=== PATIENT | female | born 1940 | race Caucasian/White ===

== ENCOUNTER → 2019-07-04 | Outpatient (CLI) | payer MEDICARE, SELFPAY ==
--- NOTE | 2019-07-04 09:50 | BD_ITS ---
STUDY: DUAL ENERGY X-RAY ABSORPTIOMETRY / DXA REASON FOR EXAM: Female, 78 years old. The patient is postmenopausal. Loss of height. Prior right hip replacement. TECHNIQUE: Bone Mineral Density (BMD) measurements of lumbar spine and left hip were obtained. COMPARISON: None. FINDINGS: Lumbar Spine (L1-L4): g/cm2 (1.252) / T-score (0.7) / Z-score (2.6) Findings are suggestive of normal bone density with a low fracture risk. Increased thoracic kyphosis. Left Femur Total: g/cm2 (0.914) / T-score (-0.7) / Z-score (1.2) Left Femoral Neck: g/cm2 (0.864) / T-score (-1.3) / Z-score (0.9) BD/Dexa Bone Density Study IMPRESSION: The patient is considered osteopenic as outlined below according to World Matthew Organization (WHO) criteria with a low fracture risk. Reference Information: The T-score is the number of standard deviations above or below the standard which is normal for young adults at their peak bone mineral density. The World Health Organization (WHO) interprets the T-scores as follows: Above -1 Normal bone density Between -1 and -2.5 Osteopenia Equal to / or below -2.5 Osteoporosis As a practical clinical guideline, osteopenia may be graded as follows: Mild -1 through -1.5 Moderate -1.6 through -2.0 Severe -2.1 through -2.4 The Z-score is the number of standard deviations above or below age-matched controls. A Z-score of less than -1.5 would be considered abnormal. References: 1. NIH Osteoporosis and Related Bone Diseases http://www.osteo.org 2. International Society for Clinical Densitometry http://www.iscd.org 3. National Osteoporosis Foundation http://www.nof.org Electronically Signed: Josh Roque, at 8:52 EDT , Service support ,
== END | disposition home or self-care (01) ==
LOC: OPBD 09:44
PROVIDERS: Family Provider Family Medicine; PCP Family Medicine; Referring Provider Family Medicine; Visit Provider Family Medicine
DX: Z78.0 Asymptomatic menopausal state (principal)
CPT/HCPCS: 77080

== ENCOUNTER 2020-12-27 13:06 | Outpatient (RCR) | payer MEDICARE, SELFPAY | END 2020-12-27 23:59 | LOC: IMMUN 13:06 | PROVIDERS: PCP Family Medicine; Referring Provider Family Medicine; Visit Provider Family Medicine | DX: Z23 Encounter for immunization (principal) | CPT/HCPCS: 0011A; 0012A ==

== ENCOUNTER 2022-01-12 12:40 | Outpatient (CLI) | payer MEDICARE, SELFPAY ==
--- NOTE | 2022-01-12 12:46 | US_ITS ---
HISTORY: HISTORY OF CHRONIC UTI'S EXAMINATION: US Kidney(s) complete (eg, kidneys and bladder) TECHNIQUE: Rosenthal scale and color doppler images were obtained of the kidneys and urinary bladder. COMPARISON: None FINDINGS: RIGHT KIDNEY: 10.9 x 5 x 4.6 cm cortical thickness of 1.3 cm. There is no hydronephrosis. Anechoic, exophytic cyst arising from lower pole measures 4.9 x 4.3 x 4.8 cm. No shadowing calculus or perinephric collection demonstrated. LEFT KIDNEY: 10.4 x 4.5 x 5.5 cm with cortical thickness of 1.4 cm. There is no hydronephrosis. 1.4 x 1.1 x 1.1 cm anechoic cyst within upper pole cortex. 0.9 x 0.6 x 0.9 cm anechoic cyst within interpolar cortex. No shadowing calculus or perinephric collection is demonstrated. URINARY BLADDER: Slightly distended urinary bladder measures 330 cc volume. No postvoid imaging performed. No intraluminal filling defects or significant wall thickening demonstrated. Bilateral ureteral jets visualized. US/Kidney and Bladder IMPRESSION: 1. Slightly distended urinary bladder. 2. Simple appearing bilateral renal cysts requiring no additional follow-up, largest arising from right lower pole measuring almost 5 cm diameter. at 0103 Reported and signed by: Scott Moreira MD Electronically Signed: Scott Moreira MD at 1:02 EST ,
== END 2022-01-12 23:59 | disposition home or self-care (01) ==
LOC: US 12:42
PROVIDERS: PCP Family Medicine; Referring Provider Urology; Visit Provider Urology
DX: N39.0 Urinary tract infection, site not specified (principal)
CPT/HCPCS: 76770

== ENCOUNTER 2022-02-09 11:40 | Day surgery (SDC) | payer MEDICARE, OTHER, SELFPAY ==
--- NOTE | 2022-02-03 09:22 | EKG12_ITS ---
Test Reason : PREOP Blood Pressure : / mmHG Vent. Rate : 068 BPM Atrial Rate : 068 BPM P-R Int : 182 ms QRS Dur : 088 ms QT Int : 398 ms P-R-T Axes : 056 038 038 degrees QTc Int : 423 ms Normal sinus rhythm Normal ECG Confirmed by JOSE RAMON SALAMANCA, JACKIE ([id number]), editor managing director ALVA BAGLEY ([id number]) on 02/04/2022 8:53:10 AM Referred By: Sonal Noel Confirmed By:JACKIE ALBRIGHT MD
[2022-02-03 09:52] LABS: Hematocrit 36.7 % (37-47); Mean Corp Hgb Conc 32.7 g/dL (32-36); Mean Corpuscular Hgb 31.2 pg (27.0-32.0); Mean Corpuscular Volume 95.3 fL (81-99); Mean Platelet Vol. 9.1 fl (6.2-12.0); Platelet Count 211 K/mm3 (150-450); RBC Distribution Width CV 12.4 % (11.6-14.6); RBC Distribution Width SD 43.2 fl (35.1-43.9); Red Blood Count 3.85 M/mm3 (4.2-5.4); White Blood Count 6.6 K/mm3 (4.4-11.0)
[2022-02-03 09:59] LABS: International Normalized Ratio 1.1; Prothrombin Time (Protime)PT. 13.9 SECONDS (11.7-14.9)
[2022-02-03 10:00] LABS: Partial Thromboplast Time 30.9 Seconds (24.1-36.2)
[2022-02-03 10:29] LABS: AST(SGOT) 17 U/L (15-37); Alanine Aminotransfer ALT/SGPT 18 U/L (13-56); Albumin, Serum 3.9 g/dL (3.2-5.0); Alkaline Phosphatase 73 U/L (45-117); Anion Gap 4 (5-15); BUN 23 mg/dL (7-18); BUN/Creat Ratio 24.5 RATIO (10-20); Calcium,Total 9.3 mg/dL (8.5-10.1); Chloride 103 mmol/L (98-107); Creatinine, Serum 0.94 mg/dL (0.55-1.02); EST Glomerular Filtration Rate 61 mL/min (>60); Est Glom Filt Rate - Afr Amer 74 mL/min (>60); Globulin 3.9 g/dL (2.2-4.2); Glucose 90 mg/dL (74-106); Magnesium 2.3 mg/dL (1.6-2.6); Phosphorus 3.5 mg/dL (2.5-4.9); Potassium 3.9 mmol/L (3.5-5.1); Protein, Total 7.8 g/dL (6.4-8.2); Sodium Level 136 mmol/L (136-145)
[2022-02-09] VITALS (7 sets, daily range): BP systolic 120–150; BP diastolic 56–67; PULSE 60–76; RESP 16–18; TEMP 35.8–37.2; O2SAT 96–100; BMI 31.4
[2022-02-09] MEDS: Lactated Ringers 1,000 ML 15 ML IV (12:15)
--- NOTE | 2022-02-09 13:20 | BLA_PTH ---
PATIENT: GUANAKO PUCKETT LOC: [facility] [place][id number] AGE/SX: 81/F ROOM: RE02/09/[address]: Dr. Sonal Noel MD : [id number] BED: DIS: 02/09/2022 SPEC #: [id number] RECD: 02/09/22 15:47 STATUS: ANA OJEDA #: [id number] AMRIT: 02/09/22 13:[address]: Sonal Noel DEPT: SURGICAL PATHOLOGY RECD BY: Ernestina Grey ENTERED: 02/10/22 08:02 SP TYPE: BLADDER BX OTHR DR: Dr. Joseph Graves MD Tissues: Urinary bladder, NOS Procedures: Surgery Specimen Level IV HEADER OPERATION: Cysto, bladder biopsy, fulguration PRE-OP DIAGNOSIS: Urinary tract infection, neoplasm of bladder, urgency of urination TISSUE SUBMITTED: Bladder biopsy MICROSCOPIC DIAGNOSIS Bladder, biopsy: Moderate chronic inflammation. Negative for malignancy. See comment. NAOMI:elissa 02/11/2022 COMMENT Detrusor muscle is present in the specimen. MICROSCOPIC DESCRIPTION Slides are reviewed. GROSS DESCRIPTION Received in fixative is one container labeled with the patient's name and designated bladder biopsy. The specimen consists of multiple irregular fragments of james soft tissue that in aggregate measure 0.2 x 0.1 x 01 cm. The specimen is totally submitted in one cassette. / NAOMI:elissa 02/10/2022 TC:3 CPT: 82866
[2022-02-09] MEDS: Cefazolin 2 GM in 0.9% Normal Saline 100 ML IV (13:34)
--- NOTE | 2022-02-09 13:37 | PCM.DC ---
Discharge Instructions Diet Discharge Diet: No restrictions Activity Discharge Activity: Return to Normal Activity Dressing / Incision Call your doctor if you observe: Fever of 101 or Higher, Inability to urinate and Inability to have a bowel movement Follow Up Care Please Follow Up With: Sonal Noel MD When: call office for an appt next week Test Results: Test results from this visit will be discussed in further detail at your follow-up appointment, if applicable. Discharge Plan Admission Attending Provider: Sonal Noel Primary Care Provider: Joseph Graves Discharge Orders/Prescriptions Prescriptions: New hydrocodone-acetaminophen [hydrocodone-acetaminophen] 1 TABLET tablet 1 tab PO Q8H PRN PRN (Reason: Pain) 7 Days Qty: 10 RF: 0 cephalexin [cephalexin] 500 MG capsule 500 mg PO Q12 3 Days Qty: 6 RF: 0 Continued amoxicillin 500 mg capsule 2,000 mg PO DAILY PRN PRN (Reason: prior to dentist visit) RF: 0 atenolol 100 mg tablet 100 mg PO DAILY RF: 0 bimatoprost 0.03 % drops 1 drp EACH EYE QHS RF: 0 tramadol 50 mg Tablet 50 mg PO Q8H PRN (Reason: arthritis pain) RF: 0 acetaminophen 500 mg Tablet 500 mg PO Q6H PRN (Reason: arthritis) RF: 0 ascorbic acid (vitamin C) [Vitamin C] 500 mg tablet 500 mg PO DAILY RF: 0 Premarin 0.625 mg/gram cream 1 applic vaginal DAILY RF: 0 ursodiol 300 mg capsule 60 mg PO BID RF: 0 dorzolamide-timolol 22.3-6.8 mg/mL drops 1 drp EACH EYE BID RF: 0 hydroxyzine HCl 25 mg Tablet 25 mg PO BID PRN (Reason: Itching) RF: 0 spironolactone 50 mg tablet 50 mg PO DAILY RF: 0 rosuvastatin 5 mg tablet 5 mg PO DAILY RF: 0 Align 4 mg Capsule 4 mg PO DAILY RF: 0 U-Tract 500 mg PO/SL TID RF: 0 Uricalm Cranberry With D-Martínez 1 tab PO/SL DAILY RF: 0 Referrals / Follow Up: Joseph Graves MD [Primary Care Provider] - Disposition Disposition (needs filled in before D/C Order can be placed): Home, Self Care
--- NOTE | 2022-02-09 14:01 | PCM.OPRPT ---
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 On the cystoscopy in the office, a questionable vascular lesion approximately 5 mm in size was identified close to the area of the trigone. Another lesion was also identified in the office similar appearance. Informed consent was obtained and the patient agreed to proceed with biopsy under anesthesia. The patient was taken to the operating room and placed on the operating room table. Anesthesia monitored the head, neck, airway, IV access and vital signs throughout the case. Once anesthesia was appropriate ministered the patient was placed into dorsal lithotomy position was prepped and draped in usual sterile fashion. The cystoscope was inserted through the urethra under direct visualization into the urinary bladder. The area of question appeared similar to a grouping of irregular blood vessels with changes in the overlying mucosa. This area was biopsied and sent for evaluation. The area was fulgurated for hemostatic control and tissue treatment. The area previously seen in the office posteriorly was not recognized today on cystoscopy. An area of mild erythema in the posterior bladder wall was biopsied and sent for evaluation. This area was also fulgurated for hemostatic control and tissue treatment. The patient's bladder was then emptied and the case was terminated. She was awakened and taken to the recovery room in good condition. There were no complications during this procedure. Complications none Admit VTE Documentation VTE Present on Admission: Yes VTE Mechan Device Prophylaxis: SCD's VTE Pharm Prophylaxis ordered?: No Reason prophylaxis not ordered:: Treatment Not Indicated
== END 2022-02-09 23:59 | disposition home or self-care (01) ==
LOC: SDC 11:41 → AC 11:41
PROVIDERS: Anesthesiology; PCP Family Medicine; Referring Provider Urology; Visit Provider Urology
PROC: 0TBB8ZX Excision of Bladder, Via Natural or Artificial Opening Endoscopic, Diagnostic (ICD-10-PCS; CPT 910; principal; 2022-02-09 13:10)
DX: N32.9 Bladder disorder, unspecified (principal); K74.60 Unspecified cirrhosis of liver; I10 Essential (primary) hypertension; M19.90 Unspecified osteoarthritis, unspecified site; Z79.899 Other long term (current) drug therapy; H40.9 Unspecified glaucoma; Z87.440 Personal history of urinary (tract) infections
CPT/HCPCS: 00910; 52224; 36415; 80053; 83735; 84100; 85027; 85610; 85730; 87426; 88305; 93005; C9803; J7120; J2405

== ENCOUNTER 2022-10-16 17:23 | Outpatient (CLI) | payer MEDICARE, OTHER, SELFPAY ==
--- NOTE | 2022-10-16 18:45 | MRI_ITS ---
INDICATION: ISCHEMIC OPTIC NEUROPATHY, RIGHT EYE EXAMINATION/TECHNIQUE: X-RAY - MR Orbits and Brain WO/W Contrast COMPARISON: None. FINDINGS: BRAIN AND EXTRA-AXIAL SPACES: No intracranial mass, mass effect, or midline shift. No enhancing lesion. No hemorrhage, hydrocephalus, or acute territorial infarct. Limited T2 signal hyperintensities in the white matter consistent with microvascular ischemia. Ventriculomegaly is commensurate with the degree of sulcal atrophy. Mild cerebral atrophy with widening of the extra-axial spaces and ventricular dilation. Basal cisterns are unremarkable. ORBITS: Globes are unremarkable. No intraorbital mass or enhancing lesion. Extraocular muscles are normal bilaterally. No retrobulbar or mass or inflammatory changes. No abnormal enhancement. SELLA: Pituitary gland is normal in height. Infundibulum in the midline. Normal cavernous sinuses and optic chiasm. AUDITORY SYSTEM: Unremarkable. BONES: Unremarkable. SINUSES: Unremarkable as visualized. Clear. MASTOID AIR CELLS: Unremarkable as visualized. Clear. ORBITS: Unremarkable as visualized. VASCULATURE: Normal flow voids in the major intracranial circulation. MRI/Brain W/WO Contrast IMPRESSION: No acute findings in the brain or orbits. Mild microvascular ischemic changes. Electronically Signed: Mago Santos MD at 21:30 EST Reading Location ID and State: [id number] / Tel , Service support ,
[2022-10-16 19:06] LABS: CREATININE FINGERSTICK < 0.9 mg/dL (0.55-1.02); EGFR FINGERSTICK > 60.0000 mL/min (>60)
== END 2022-10-16 23:59 | disposition home or self-care (01) ==
LOC: MRI 17:27
PROVIDERS: PCP Family Medicine; Visit Provider Ophthalmology
DX: H47.011 Ischemic optic neuropathy, right eye (principal); G31.9 Degenerative disease of nervous system, unspecified
CPT/HCPCS: 70553; A9575

== ENCOUNTER 2022-10-18 09:12 | Emergency (ER) | payer MEDICARE, OTHER, SELFPAY ==
[2022-10-18 09:16] VITALS: BP 170/68; PULSE 68; RESP 16; TEMP 36.4; O2SAT 99; BMI 31.1
[2022-10-18 09:24] VITALS: BP 170/68; PULSE 68; RESP 16; TEMP 36.4; O2SAT 99
--- NOTE | 2022-10-18 09:55 | EX.ED.DYSGE1 ---
HPI History of Present Illness Chief Complaint: Wound Informant: patient Narrative Narrative: 81-year-old female presenting to the emergency department with the chief complaint of right elbow wound. Symptoms began several days ago she had some discomfort on the posterior aspect of her right forearm near the elbow. She states that slowly she began to have a bump in her family thought it started to look like a boil. Now she notes erythema and swelling diffusely over the posterior elbow. She has had no fever. She denies any lymphangitic streaking. She has been able to move the elbow without pain. [facility] Medical History Bladder disease Cirrhosis Frequent UTI Glaucoma Hepatitis History of edema History of stress test Hoarseness Hypertension Leg cramps Neoplasm of uncertain behavior of bladder Non-smoker Osteoarthritis Seasonal allergies Shortness of breath on exertion Wears glasses Wears hearing aid Home Medications Bifidobacterium infantis 4 mg capsule (Align) 4 mg PO DAILY probiotic 02/02/22 [History Last Taken Unknown] U-Tract 500 mg PO/SL TID urinary tract health 02/02/22 [History Last Taken Unknown] Uricalm Cranberry With D-Martínez 1 tab PO/SL DAILY urinary tract health 02/02/22 [History Last Taken Unknown] acetaminophen 500 mg tablet 500 mg PO Q6H PRN arthritis 02/02/22 [History Last Taken Unknown] amoxicillin 500 mg capsule 2,000 mg PO DAILY PRN PRN prior to dentist visit 02/02/22 [History Last Taken Unknown] ascorbic acid (vitamin C) 500 mg tablet (Vitamin C) 500 mg PO DAILY supplement 02/02/22 [History Last Taken Unknown] atenolol 100 mg tablet 100 mg PO DAILY 02/02/22 [History Last Taken 02/09/22] bimatoprost 0.03 % eye drops 1 drp EACH EYE QHS 02/02/22 [History Last Taken Unknown] conjugated estrogens 0.625 mg/gram vaginal cream (Premarin) 1 applic vaginal DAILY 02/02/22 [History Last Taken Unknown] dorzolamide 22.3 mg-timolol 6.8 mg/mL eye drops 1 drp EACH EYE BID 02/02/22 [History Last Taken Unknown] hydroxyzine HCl 25 mg tablet 25 mg PO BID PRN Itching 02/02/22 [History Last Taken Unknown] rosuvastatin 5 mg tablet 5 mg PO DAILY HLD 02/02/22 [History Last Taken Unknown] spironolactone 50 mg tablet 50 mg PO DAILY water pill 02/02/22 [History Last Taken Unknown] tramadol 50 mg tablet 50 mg PO Q8H PRN arthritis pain 02/02/22 [History Last Taken Unknown] ursodiol 300 mg capsule 60 mg PO BID liver 02/02/22 [History Last Taken Unknown] cephalexin 500 mg capsule 500 mg PO Q12 post-operative 3 days #6 CAPSULES 02/09/22 [Rx Last Taken Unknown] hydrocodone-acetaminophen 5-325mg 5mg-325mg 1 tab PO Q8H PRN PRN Pain 7 days #10 TABLETS 02/09/22 [Rx Last Taken Unknown] Allergy/AdvReac Type Severity Reaction Status Date / Time nitrofurantoin Allergy Other Verified 02/09/22 11:59 [From Macrobid] Surgical History History of carpal tunnel release History of colonoscopy History of hip replacement History of hysterectomy History of knee replacement Social History Smoking Status: Never smoker ROS ROS ED Constitutional Constitutional ED: Denies chills or weight loss Eyes Eyes: Denies change in vision or diplopia ENT ENT ED: Denies ear pain, rhinorrhea or sore throat Cardiovascular Cardiovascular: Denies chest pain, orthopnea, palpitations or racing heartbeat Respiratory/Chest Respiratory/Chest: Denies cough, dyspnea or orthopnea Gastrointestinal Gastrointestinal: Denies abdominal pain, diarrhea, nausea or vomiting Genitourinary Genitourinary ED: Denies dysuria, hematuria or urinary frequency Musculoskeletal Musculoskeletal: Denies arthralgias or myalgias Integumentary Reports abscess and rash Neurologic Neurologic: Denies headache(s) or weakness Psychiatric Psychiatric: Denies anxiety, depression, suicidal ideation or suicidal thoughts Endocrine Endocrinology: Denies polydipsia, polyphagia or polyuria Allergic/Immunologic Allergic/Immunologic ED: Denies mouth swelling, tongue swelling or urticaria EXAM Physical Exam Const Vital Signs: 10/18/22 09:16 10/18/22 09:24 Temperature 97.6 F L 97.6 F L Temperature Source Temporal Temporal Pulse Rate 68 68 Respiratory Rate 16 16 Blood Pressure 170/68 H 170/68 H Blood Pressure Mean 102 102 Pulse Ox 99 99 Oxygen Delivery Method Room Air Room Air Positive well nourished and well developed General Appearance ED: well developed HEENT Reports normocephalic, head/scalp atraumatic and moist mucous membranes Eyes PERRL and EOMs intact bilaterally Neck no lymphadenopathy, supple and no JVD Resp normal respiratory effort and clear to auscultation bilaterally Cardio regular rate, regular rhythm and no murmurs GI normal to inspection, nondistended, normoactive bowel sounds and non-tender Palpation: soft Back/Spine no CVA tenderness and normal ROM Extremity normal to inspection General Extremety ED: Negative for edema General Extremity: Negative for edema Neuro oriented x3 and CN's II-XII intact bilaterally Sensorium / Orientation: alert Motor Exam: strength 5/5 throughout Psych mental status grossly normal Mood & Affect: Negative for depressed or tearful Skin Skin Narrative: There is erythema and swelling over the posterior aspect of the right elbow. Patient is able to flex and extend without significant pain suggesting that this is simply in the soft tissues and not in the joint space. Also located on the dorsum of the right posterior proximal forearm is a small pustule with an excoriated top. There is some induration about this and very minimal hard pus that can be expressed. There is no fluctuance. MDM MDM MDM Narrative Medical decision making narrative: The patient will be started on Keflex and Bactrim. She was advised that this may get worse and she may need to be hospitalized but this time she is currently afebrile she has not been on antibiotics I think it is reasonable to trial her at home. Discharge Plan Triage Chief Complaint: Wound ED Provider: Moe Pompa Dx/Rx/DC Orders Prescriptions: No Action amoxicillin 500 mg capsule 2,000 mg PO DAILY PRN PRN (Reason: prior to dentist visit) Label Comments: take 4 capsules by mouth 1 hour prior to appointment atenolol 100 mg tablet 100 mg PO DAILY bimatoprost 0.03 % drops 1 drp EACH EYE QHS tramadol 50 mg Tablet 50 mg PO Q8H PRN (Reason: arthritis pain) acetaminophen 500 mg Tablet 500 mg PO Q6H PRN (Reason: arthritis) ascorbic acid (vitamin C) [Vitamin C] 500 mg tablet 500 mg PO DAILY Label Comments: 1 tablet by mouth as directed Premarin 0.625 mg/gram cream 1 applic vaginal DAILY ursodiol 300 mg capsule 60 mg PO BID dorzolamide-timolol 22.3-6.8 mg/mL drops 1 drp EACH EYE BID hydroxyzine HCl 25 mg Tablet 25 mg PO BID PRN (Reason: Itching) spironolactone 50 mg tablet 50 mg PO DAILY rosuvastatin 5 mg tablet 5 mg PO DAILY Label Comments: take 1 tablet by mouth nightly Align 4 mg Capsule 4 mg PO DAILY U-Tract 500 mg PO/SL TID Uricalm Cranberry With D-Martínez 1 tab PO/SL DAILY hydrocodone-acetaminophen [hydrocodone-acetaminophen] 1 TABLET tablet 1 tab PO Q8H PRN PRN (Reason: Pain) 7 Days Qty: 10 0RF cephalexin [cephalexin] 500 MG capsule 500 mg PO Q12 3 Days Qty: 6 0RF Primary Care Provider: Joseph Graves Referrals: Joseph Graves MD [Primary Care Provider] -
== END 2022-10-18 10:22 | disposition home or self-care (01) ==
PROVIDERS: Emergency Provider Emergency Medicine; PCP Family Medicine; Visit Provider Emergency Medicine
DX: S59.901A Unspecified injury of right elbow, initial encounter (principal); I10 Essential (primary) hypertension; X58.XXXA Exposure to other specified factors, initial encounter
CPT/HCPCS: 87070; 87077; 87186; 87205; 99282

== ENCOUNTER 2022-10-19 13:39 | Outpatient (CLI) | payer MEDICARE, OTHER, SELFPAY ==
--- NOTE | 2022-10-19 13:46 | CDU_ITS ---
Reason For Study: ischemic optic neuropathy rt eye. Rt. Velocities/BP Lt. Velocities/BP Prox CCA 73.6/0.0 cm/sec. Prox CCA 95.3/9.3 cm/sec. Mid CCA 65.1/11.2 cm/sec. Mid CCA 60.9/13.0 cm/sec. Dist CCA 62.3/13.1 cm/sec. Dist CCA 65.8/10.6 cm/sec. Prox ICA 103.0/14.6 cm/sec. Prox ICA 88.3/14.6 cm/sec. Mid ICA 118.5/18.1 cm/sec. Mid ICA 87.1/12.2 cm/sec. Dist ICA 77.6/12.5 cm/sec. Dist ICA 100.6/19.5 cm/sec. Rt. ICA/CCA = 118.5/65.1=1.8. Lt. ICA/CCA = 100.6/60.9=1.7. Prox ECA 103.0/0.0 cm/sec. Prox ECA 65.0/0.0 cm/sec. Rt. Vert. 53.0/11.3 cm/sec. Lt. Vert. 59.2/13.1 cm/sec. Right Extracranial There is homogeneous, smooth atherosclerotic plaque noted in the right common carotid artery. There is heterogeneous, irregular atherosclerotic plaque noted in the right internal carotid artery. There is intimal thickening but no significant atherosclerotic plaque noted in the right external carotid artery. Antegrade flow is noted in the right vertebral artery. Left Extracranial There is intimal thickening but no significant atherosclerotic plaque noted in the left common carotid artery. There is heterogeneous, irregular atherosclerotic plaque noted in the left internal carotid artery. The atherosclerotic plaque causes acoustic shadowing. There is heterogeneous, irregular atherosclerotic plaque noted in the left external carotid artery. Antegrade flow is noted in the left vertebral artery. Procedure Carotid Duplex [id number]. This is a Carotid Duplex examination using B-mode, color flow and specral Doppler. Exam performed in department. VL/Carotid Duplex Ultrasound Interpretation Summary Irregular calcific plaque with some shadowing at the proximal right internal ca rotid artery with less than 50% stenosis.. Some backflow at the plaque is identified but a clear distinction of a plaque ulceration cannot be made. Less than 50% stenosis right external carotid artery Irregular calcific plaque with shadowing at the proximal left internal carotid artery with less than 50% stenosis Less than 50% stenosis left external carotid artery Patent antegrade vertebral arteries bilaterally Ordering Physician: Isidro Gibson Referring Physician: Joseph Graves Performed By: Callie Kelly, RDNANCY, RVT
== END 2022-10-19 23:59 | disposition home or self-care (01) ==
LOC: CVS 13:40
PROVIDERS: PCP Family Medicine; Referring Provider Ophthalmology; Visit Provider Ophthalmology
DX: H47.011 Ischemic optic neuropathy, right eye (principal); I65.23 Occlusion and stenosis of bilateral carotid arteries; H53.121 Transient visual loss, right eye
CPT/HCPCS: 93880

== ENCOUNTER 2022-10-22 09:42 | Emergency (ER) | payer MEDICARE, OTHER, SELFPAY ==
[2022-10-22 09:43] VITALS: BP 195/72; PULSE 66; RESP 18; TEMP 35.5; O2SAT 96; BMI 31.1
--- NOTE | 2022-10-22 10:45 | EDS_ITS ---
HPI History of Present Illness Chief Complaint: Wound Narrative Narrative: 81-year-old female who denies significant past medical history presents for evaluation of cellulitis on her right forearm. She states she was seen in the emergency department on Wednesday after there was a small area of drainage and surrounding redness, diagnosed with cellulitis. She has been taking Bactrim and Keflex for the last 5 days. There is an area on her right forearm that has enlarged and the induration has gotten worse. They state that he had one of the relatives who is an RN look at it and came back to the emergency department because they thought the area needed incision and drainage. She denies any fevers or chills. No nausea or vomiting. No other symptoms. The area continues to drain a small amount of purulent material. She states that the redness that has surrounded it has improved significantly. [facility] Medical History Bladder disease Cirrhosis Frequent UTI Glaucoma Hepatitis History of edema History of stress test Hoarseness Hypertension Leg cramps Neoplasm of uncertain behavior of bladder Non-smoker Osteoarthritis Seasonal allergies Shortness of breath on exertion Wears glasses Wears hearing aid Home Medications Bifidobacterium infantis 4 mg capsule (Align) 4 mg PO DAILY probiotic 02/02/22 [History Last Taken Unknown] U-Tract 500 mg PO/SL TID urinary tract health 02/02/22 [History Last Taken Unknown] Uricalm Cranberry With D-Martínez 1 tab PO/SL DAILY urinary tract health 02/02/22 [History Last Taken Unknown] acetaminophen 500 mg tablet 500 mg PO Q6H PRN arthritis 02/02/22 [History Last Taken Unknown] amoxicillin 500 mg capsule 2,000 mg PO DAILY PRN PRN prior to dentist visit 02/02/22 [History Last Taken Unknown] ascorbic acid (vitamin C) 500 mg tablet (Vitamin C) 500 mg PO DAILY supplement 02/02/22 [History Last Taken Unknown] atenolol 100 mg tablet 100 mg PO DAILY 02/02/22 [History Last Taken 02/09/22] bimatoprost 0.03 % eye drops 1 drp EACH EYE QHS 02/02/22 [History Last Taken Unknown] conjugated estrogens 0.625 mg/gram vaginal cream (Premarin) 1 applic vaginal DAILY 02/02/22 [History Last Taken Unknown] dorzolamide 22.3 mg-timolol 6.8 mg/mL eye drops 1 drp EACH EYE BID 02/02/22 [History Last Taken Unknown] hydroxyzine HCl 25 mg tablet 25 mg PO BID PRN Itching 02/02/22 [History Last Taken Unknown] rosuvastatin 5 mg tablet 5 mg PO DAILY HLD 02/02/22 [History Last Taken Unknown] spironolactone 50 mg tablet 50 mg PO DAILY water pill 02/02/22 [History Last Taken Unknown] tramadol 50 mg tablet 50 mg PO Q8H PRN arthritis pain 02/02/22 [History Last Taken Unknown] ursodiol 300 mg capsule 60 mg PO BID liver 02/02/22 [History Last Taken Unknown] cephalexin 500 mg capsule 500 mg PO Q12 post-operative 3 days #6 CAPSULES 02/09/22 [Rx Last Taken Unknown] hydrocodone-acetaminophen 5-325mg 5mg-325mg 1 tab PO Q8H PRN PRN Pain 7 days #10 TABLETS 02/09/22 [Rx Last Taken Unknown] cephalexin 500 mg capsule 500 mg PO Q6 #40 CAPSULES 10/18/22 [Rx Last Taken Unknown] sulfamethoxazole 800 mg-trimethoprim 160 mg tablet 1 tab PO BID #20 TABLETS 10/18/22 [Rx Last Taken Unknown] Allergy/AdvReac Type Severity Reaction Status Date / Time nitrofurantoin Allergy Other Verified 10/22/22 09:46 [From Macrobid] Surgical History History of carpal tunnel release History of colonoscopy History of hip replacement History of hysterectomy History of knee replacement Social History Smoking Status: Never smoker ROS ROS ED ROS Narrative Constitutional: No fever, no chills. HEENT: No sore throat. No neck pain. No loss of vision. No rhinorrhea. Cardiovascular: No chest pain. No palpitations. No pedal edema. Respiratory: No cough, no shortness of breath. Abdominal: No abdominal pain. No nausea. No vomiting. Genitourinary: No dysuria. No hematuria. Musculoskeletal: No myalgias. No arthralgias. Neurologic: No headaches. No dizziness. No lightheadedness. Skin: No rash. No change in color that is worsening, erythema improving on righ t forearm. Firmness to skin around raised red bumps that is draining purulent material. Psychiatric: No depression. No anxiety. EXAM Physical Exam Narrative Exam Narrative: Afebrile. Vital signs noted. HEENT: Normocephalic. Atraumatic. PERRL, EOMI. Neck soft and supple. No point tenderness or step off. Cardiovascular: Regular rate and rhythm. No murmurs, rubs, or gallops appreciated. Respiratory: No tachypnea. Lungs clear to auscultation bilaterally. Gastrointestinal: Abdomen soft, nontender, with normoactive bowel sounds. No rebound or guarding. Neurological: Awake. Alert. Nonfocal, nonlateralizing. Skin: No rash. Normal color. No pallor. There is a marker drawn in a circular area around her right forearm with erythema resolving. There is a raised reddened area with small areas of purulent drainage, surrounding induration but no extreme fluctuance. Musculoskeletal: No pedal edema. Full range of motion extremities. Full range of motion of elbow and wrist on right arm. No pain with movement. Const Vital Signs: 10/22/22 09:43 Temperature 96 F L Temperature Source Temporal Pulse Rate 66 Respiratory Rate 18 Blood Pressure 195/72 H Blood Pressure Mean 113 Pulse Ox 96 Oxygen Delivery Method Room Air MDM MDM MDM Narrative Medical decision making narrative: While her cellulitis has improved I do feel this area may be an area of ulceration that does require incision and drainage to remove any loculated flui d. Procedure note. Patient consented for incision and drainage. She was informed of the risk of infection continuing and scarring and acknowledges an understanding. Lidocaine 1% was used as a local anesthetic. Stellate incision was made over the ulcer/abscess with a #11 blade. There was more serosanguineous drainage than purulent. This may have been more of a infected sebaceous cyst. She was told of the risk of reaccumulation. Area was deloculated and irrigated. She will complete the rest of her antibiotics. Now that the abscess/ulcer has been opened, I do not feel that more antibiotics are indicated as her cellulitis has improved significantly. I feel she be discharged safely home. Return instructions to the emergency department were reviewed. Disposition is discharged home in improved and stable condition. Discharge Plan Triage Chief Complaint: Wound ED Provider: Vineet Atkinson Dx/Rx/DC Orders Clinical Impression: Abscess of right forearm, Wound check, abscess Instructions: ED Abscess Incision And Drainage Prescriptions: No Action amoxicillin 500 mg capsule 2,000 mg PO DAILY PRN PRN (Reason: prior to dentist visit) Label Comments: take 4 capsules by mouth 1 hour prior to appointment atenolol 100 mg tablet 100 mg PO DAILY bimatoprost 0.03 % drops 1 drp EACH EYE QHS tramadol 50 mg Tablet 50 mg PO Q8H PRN (Reason: arthritis pain) acetaminophen 500 mg Tablet 500 mg PO Q6H PRN (Reason: arthritis) ascorbic acid (vitamin C) [Vitamin C] 500 mg tablet 500 mg PO DAILY Label Comments: 1 tablet by mouth as directed Premarin 0.625 mg/gram cream 1 applic vaginal DAILY ursodiol 300 mg capsule 60 mg PO BID dorzolamide-timolol 22.3-6.8 mg/mL drops 1 drp EACH EYE BID hydroxyzine HCl 25 mg Tablet 25 mg PO BID PRN (Reason: Itching) spironolactone 50 mg tablet 50 mg PO DAILY rosuvastatin 5 mg tablet 5 mg PO DAILY Label Comments: take 1 tablet by mouth nightly Align 4 mg Capsule 4 mg PO DAILY U-Tract 500 mg PO/SL TID Uricalm Cranberry With D-Martínez 1 tab PO/SL DAILY hydrocodone-acetaminophen [hydrocodone-acetaminophen] 1 TABLET tablet 1 tab PO Q8H PRN PRN (Reason: Pain) 7 Days Qty: 10 0RF cephalexin [cephalexin] 500 MG capsule 500 mg PO Q12 3 Days Qty: 6 0RF sulfamethoxazole-trimethoprim [sulfamethoxazole-trimethoprim] 800-160 mg tablet 1 tab PO BID Qty: 20 0RF cephalexin [cephalexin] 500 mg capsule 500 mg PO Q6 Qty: 40 0RF Primary Care Provider: Joseph Graves Referrals: Joseph Graves MD [Primary Care Provider] - 3-5 Days if not improving Activity Restrictions/Additional Instructions: Finish the rest of your antibiotics. Your cellulitis has improved significantly. Warm compresses to your abscess. Now that it is open, you will see a significant improvement. Disposition Disposition: Home, Self Care
[2022-10-22 11:39] VITALS: BP 134/78; PULSE 88; RESP 18; TEMP 36.4; O2SAT 99
[2022-10-22] MEDS: Lidocaine 1% (20 ml mdv) 20 ML Vial INFILT (11:40)
== END 2022-10-22 11:42 | disposition home or self-care (01) ==
PROVIDERS: Emergency Provider Emergency Medicine; PCP Family Medicine; Visit Provider Emergency Medicine
DX: L02.413 Cutaneous abscess of right upper limb (principal); I10 Essential (primary) hypertension
CPT/HCPCS: 10060; 99282

== ENCOUNTER 2022-10-27 08:42 | Emergency (ER) | payer MEDICARE, OTHER, SELFPAY ==
[2022-10-27 08:42] VITALS: BP 164/71; PULSE 63; RESP 18; TEMP 36.3; O2SAT 96; BMI 31.1
[2022-10-27 08:54] VITALS: BP 164/71; PULSE 63; RESP 18; TEMP 36.3; O2SAT 96
--- NOTE | 2022-10-27 09:44 | EX.ED.DYSGE1 ---
HPI History of Present Illness Chief Complaint: Abscess Informant: patient Onset/Context/Timing Onset: Weeks Narrative Narrative: Patient presents secondary to continued abscess on her right forearm. She was seen initially in the ER and diagnosed with cellulitis, started on Bactrim and Keflex. She returned a couple days later for an I&D. Patient states that the area was significantly improved but over the past couple days has noted it starting to enlarge again. She only has 1 day of antibiotics left. [facility]SH [facility] Medical History Bladder disease Cirrhosis Frequent UTI Glaucoma Hepatitis History of edema History of stress test Hoarseness Hypertension Leg cramps Neoplasm of uncertain behavior of bladder Non-smoker Osteoarthritis Seasonal allergies Shortness of breath on exertion Wears glasses Wears hearing aid Home Medications Bifidobacterium infantis 4 mg capsule (Align) 4 mg PO DAILY probiotic 02/02/22 [History Last Taken Unknown] U-Tract 500 mg PO/SL TID urinary tract health 02/02/22 [History Last Taken Unknown] Uricalm Cranberry With D-Martínez 1 tab PO/SL DAILY urinary tract health 02/02/22 [History Last Taken Unknown] acetaminophen 500 mg tablet 500 mg PO Q6H PRN arthritis 02/02/22 [History Last Taken Unknown] amoxicillin 500 mg capsule 2,000 mg PO DAILY PRN PRN prior to dentist visit 02/02/22 [History Last Taken Unknown] ascorbic acid (vitamin C) 500 mg tablet (Vitamin C) 500 mg PO DAILY supplement 02/02/22 [History Last Taken Unknown] atenolol 100 mg tablet 100 mg PO DAILY 02/02/22 [History Last Taken 02/09/22] bimatoprost 0.03 % eye drops 1 drp EACH EYE QHS 02/02/22 [History Last Taken Unknown] conjugated estrogens 0.625 mg/gram vaginal cream (Premarin) 1 applic vaginal DAILY 02/02/22 [History Last Taken Unknown] dorzolamide 22.3 mg-timolol 6.8 mg/mL eye drops 1 drp EACH EYE BID 02/02/22 [History Last Taken Unknown] hydroxyzine HCl 25 mg tablet 25 mg PO BID PRN Itching 02/02/22 [History Last Taken Unknown] rosuvastatin 5 mg tablet 5 mg PO DAILY HLD 02/02/22 [History Last Taken Unknown] spironolactone 50 mg tablet 50 mg PO DAILY water pill 02/02/22 [History Last Taken Unknown] tramadol 50 mg tablet 50 mg PO Q8H PRN arthritis pain 02/02/22 [History Last Taken Unknown] ursodiol 300 mg capsule 60 mg PO BID liver 02/02/22 [History Last Taken Unknown] cephalexin 500 mg capsule 500 mg PO Q12 post-operative 3 days #6 CAPSULES 02/09/22 [Rx Last Taken Unknown] hydrocodone-acetaminophen 5-325mg 5mg-325mg 1 tab PO Q8H PRN PRN Pain 7 days #10 TABLETS 02/09/22 [Rx Last Taken Unknown] cephalexin 500 mg capsule 500 mg PO Q6 #40 CAPSULES 10/18/22 [Rx Last Taken Unknown] sulfamethoxazole 800 mg-trimethoprim 160 mg tablet 1 tab PO BID #20 TABLETS 10/18/22 [Rx Last Taken Unknown] doxycycline monohydrate 100 mg capsule 100 mg PO BID #20 caps 10/27/22 [Rx Last Taken Unknown] Allergy/AdvReac Type Severity Reaction Status Date / Time nitrofurantoin Allergy Other Verified 10/27/22 08:45 [From Macrobid] Surgical History History of carpal tunnel release History of colonoscopy History of hip replacement History of hysterectomy History of knee replacement Social History Smoking Status: Never smoker ROS ROS ED Constitutional Constitutional ED: Denies chills or fever(s) Eyes Eyes: Denies change in vision or discharge from eye(s) ENT ENT ED: Denies discharge from eye(s), rhinorrhea or sore throat Cardiovascular Cardiovascular: Denies chest pain or palpitations Respiratory/Chest Respiratory/Chest: Denies cough or dyspnea Gastrointestinal Gastrointestinal: Denies abdominal pain, diarrhea, nausea or vomiting Genitourinary Genitourinary ED: Denies dysuria Musculoskeletal Musculoskeletal: Reports extremity pain; Denies back pain Integumentary Reports abscess; Denies Abrasions or rash Neurologic Neurologic: Denies headache(s) or weakness Psychiatric Psychiatric: Denies anxiety or depression Allergic/Immunologic Allergic/Immunologic ED: Denies lip swelling or urticaria EXAM Physical Exam Const Vital Signs: 10/27/22 08:42 12/13/22 08:54 Temperature 97.3 F L 97.3 F L Temperature Source Temporal Temporal Pulse Rate 63 63 Respiratory Rate 18 18 Blood Pressure 164/71 H 164/71 H Blood Pressure Mean 102 102 Pulse Ox 96 96 Oxygen Delivery Method Room Air Room Air Positive well nourished and well developed General Appearance ED: well developed HEENT Reports normocephalic and head/scalp atraumatic Eyes PERRL and EOMs intact bilaterally Neck supple Chest Wall inspection of chest normal and palpation of chest normal Resp normal respiratory effort and clear to auscultation bilaterally Cardio regular rate and regular rhythm GI normal to inspection, nondistended, normoactive bowel sounds Palpation: soft Extremity Extremity Narrative: 3 x 3 cm abscess to the volar right forearm. No surrounding cellulitis. Neuro oriented x3 and no sensory deficits noted Sensorium / Orientation: alert Motor Exam: strength 5/5 throughout Psych mental status grossly normal Skin Skin Narrative: Abscess as noted above. MDM MDM MDM Narrative Medical decision making narrative: Patient consented for I&D. 1 cc 1% lidocaine infused locally over the abscess. A 1.5 cm incision was made with a #11 blade. Wound is explored with curved hemostats and loculations broken up. No significant drainage of pus. Quarter inch iodoform packing was placed in the wound. This is to be removed in 3 days. Dressing applied. I did review her recent wound culture which revealed staph aureus. I will switch her to doxycycline for continued antibiotic coverage. Discharge Plan Triage Chief Complaint: Abscess ED Provider: Usha Marino Dx/Rx/DC Orders Clinical Impression: Cutaneous abscess Instructions: ED Abscess Incision And Drainage Prescriptions: New doxycycline monohydrate 100 mg capsule 100 mg PO BID Qty: 20 0RF No Action amoxicillin 500 mg capsule 2,000 mg PO DAILY PRN PRN (Reason: prior to dentist visit) Label Comments: take 4 capsules by mouth 1 hour prior to appointment atenolol 100 mg tablet 100 mg PO DAILY bimatoprost 0.03 % drops 1 drp EACH EYE QHS tramadol 50 mg Tablet 50 mg PO Q8H PRN (Reason: arthritis pain) acetaminophen 500 mg Tablet 500 mg PO Q6H PRN (Reason: arthritis) ascorbic acid (vitamin C) [Vitamin C] 500 mg tablet 500 mg PO DAILY Label Comments: 1 tablet by mouth as directed Premarin 0.625 mg/gram cream 1 applic vaginal DAILY ursodiol 300 mg capsule 60 mg PO BID dorzolamide-timolol 22.3-6.8 mg/mL drops 1 drp EACH EYE BID hydroxyzine HCl 25 mg Tablet 25 mg PO BID PRN (Reason: Itching) spironolactone 50 mg tablet 50 mg PO DAILY rosuvastatin 5 mg tablet 5 mg PO DAILY Label Comments: take 1 tablet by mouth nightly Align 4 mg Capsule 4 mg PO DAILY U-Tract 500 mg PO/SL TID Uricalm Cranberry With D-Martínez 1 tab PO/SL DAILY hydrocodone-acetaminophen [hydrocodone-acetaminophen] 1 TABLET tablet 1 tab PO Q8H PRN PRN (Reason: Pain) 7 Days Qty: 10 0RF cephalexin [cephalexin] 500 MG capsule 500 mg PO Q12 3 Days Qty: 6 0RF sulfamethoxazole-trimethoprim [sulfamethoxazole-trimethoprim] 800-160 mg tablet 1 tab PO BID Qty: 20 0RF cephalexin [cephalexin] 500 mg capsule 500 mg PO Q6 Qty: 40 0RF Primary Care Provider: Joseph Graves Referrals: Joseph Graves MD [Primary Care Provider] - 1 Week Disposition Disposition: Home, Self Care
[2022-10-27] MEDS: Lidocaine 1% (20 ml mdv) 20 ML Vial INFILT (09:45)
== END 2022-10-27 10:32 | disposition home or self-care (01) ==
PROVIDERS: Emergency Provider Emergency Medicine; PCP Family Medicine; Visit Provider Emergency Medicine
DX: L02.413 Cutaneous abscess of right upper limb (principal); I10 Essential (primary) hypertension; B95.8 Unspecified staphylococcus as the cause of diseases classified elsewhere
CPT/HCPCS: 10060; 99282

== ENCOUNTER → 2023-03-30 | Outpatient (CLI) | payer MEDICARE, OTHER, SELFPAY | END | disposition home or self-care (01) | LOC: LAB 09:58 | PROVIDERS: PCP Family Medicine; Referring Provider Ophthalmology; Visit Provider Ophthalmology | DX: Z00.00 Encounter for general adult medical examination without abnormal findings (principal) | CPT/HCPCS: 36415 ==

== ENCOUNTER → 2023-12-21 | Outpatient (CLI) | payer MEDICARE, OTHER, SELFPAY ==
--- OUTSIDE RECORDS SUMMARY | 2023-12-21 09:08 | XMS RPT_ITS | CCD ---
Author Name Unknown Address [address] [facility] [address] [place] [address] Organization [facility] Care Team Providers Care Welfare Administrator Name Role Phone SATYA LYLES Unavailable Unavailable RAFAL, SATYA Unavailable Unavailable RAFAL, SATYA Unavailable Unavailable Rafal III, Satya Olivier Primary Care Provider Ezequiel Mark Unavailable Angela Patel MD Primary Care Provider Angela Patel MD Primary Care Provider Rafal III, Satya Olivier Primary Care Provider Ezequiel Mark MD Unavailable WENDY ROSA Attending Unavailable RAFAL III, SATYA BURLINGTON Primary Care Unavail able BONNIE GONGORA Attending Unavailable RAFAL III, [facility] Primary Care Unavail able WENDY ROSA Attending Unavailable RAFAL III, SATYA MAKENZIE Primary Care Unavail able BONNIE GONGORA Referring Unavailable RAFAL III, SATYA MAKENZIE Primary Care Unavail able ANGELA PATEL Attending Unavailable AMANDA, ANGELA Primary Care Unavailable AMANDA, ANGELA Attending Unavailable AMANDA, ANGELA Primary Care Unavailable AMANDA, ANGELA Attending Unavailable AMANDA, ANGELA Primary Care Unavailable AMANDA, ANGELA Attending Unavailable AMANDA, ANGELA Primary Care Unavailable AMANDA, ANGELA Attending Unavailable AMANDA, ANGELA Referring Unavailable AMANDA, ANGELA Primary Care Unavailable MAXIMO RUANO Attending Unavailable AMANDA, ANGELA Primary Care Unavailable Allergies Allergy Classification Reported Allergen(s) Allergy Type Date of Onset Reaction(s) Facility (15 sources) Nitrofurantoin; Translations: [NITROFURANTOIN] Drug Allergy 10-14-2016 Other: See Comments [facility] Medications Current Medications Medication Drug Class(es) Dates Sig (Normalized) Sig (Original) acetaminophen 500 mg oral tablet (14 sources) take 1 tablet by mouth every six hours as needed acetaminophen (Tylenol) 500 MG tablet Take 500 mg by mouth every 6 hours as needed. 0 Active Completed/Discontinued Medications Medication Drug Class(es) Dates Sig (Normalized) Sig (Original) amoxicillin 500 mg oral capsule (6 sources) Penicillin-class Antibacterial Start: 04-21-2011 take 4 capsules by mouth every hour amoxicillin 500 mg ORAL capsule Indications: S/P total knee replacement using cement TAKE FOUR (4) CAPS BY MOUTH ONE (1) HOUR PRIOR TO DENTAL WORK 4 capsule 3 04/21/2011 Active Problems Active Problems Problem Classification Problem Date Documented Da te Episodic/Chronic Disorders of lipid metabolism (11 sources) Pure hypercholesterolemi a; Translations: [Pure hypercholesterolemi a, unspecified] Onset: 11-20-2019 08-30-2022 Chronic Essential hypertension (11 sources) Essential hypertension; Translations: [Essential (primary) hypertension] Onset: 11-20-2019 08-30-2022 Chronic Glaucoma (12 sources) Glaucoma; Translations: [Unspecified glaucoma] Onset: 11-29-2018 08-30-2022 Chronic Hepatitis (6 sources) Drug-induced hepatitis; 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, not elsewhere classified] Onset: 01-15-2012 01-15-2012 Chronic Osteoarthritis (11 sources) Arthritis; Translations: [Unspecified osteoarthritis, unspecified site] Onset: 11-29-2018 08-30-2022 Chronic Other connective tissue disease (8 sources) Pain of right lower leg; Translations: [Pain in right lower leg] Onset: 01-29-2023 01-29-2023 Episodic Other eye disorders (1 source) Disorder of lacrimal gland; Translations: [Dry eye syndrome of bilateral lacrimal glands] 09-13-2023 Episodic Other liver diseases (6 sources) Cirrhosis of liver; Translations: [Unspecified cirrhosis of liver] Onset: 12-11-2011 12-11-2011 Chronic Other liver diseases (14 sources) Portal hypertension; Translations: [Portal hypertension] Onset: 12-11-2011 12-11-2011 Chronic Other liver diseases (6 sources) Lesion of liver; Translations: [Liver disease, unspecified] Onset: 09-17-2014 09-17-2014 Chronic Other liver diseases (17 sources) Primary biliary cholangitis; 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] Onset: 08-16-2015 08-19-2018 Chronic Other liver diseases (3 sources) Primary biliary cirrhosis; 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)] Onset: 08-19-2018 Chronic Other liver diseases (2 sources) Portal hypertension; Translations: [Portal hypertension (HCC)] Onset: 01-29-2023 Chronic Other upper respiratory disease (2 sources) Congestion of nasal sinus; Translations: [Nasal congestion] Onset: 11-09-2023 11-09-2023 Episodic Other upper respiratory disease (2 sources) Nasal congestion; Translations: [Nasal congestion] Onset: 11-09-2023 Episodic Other upper respiratory infections (4 sources) Viral upper respiratory tract infection; Translations: [Acute upper respiratory infection, unspecified] Onset: 11-09-2023 11-09-2023 Episodic Retinal detachments; defects; vascular occlusion; and retinopathy (1 source) Occlusion of central retinal vein of left eye; Translations: [Central retinal vein occlusion, left eye, stable] 09-13-2023 Chronic Past or Other Problems Problem Classification Problem Date Documented Da te Episodic/Chronic Genitourinary symptoms and ill-defined conditions (2 sources) Dysuria; Translations: [DYSURIA] Onset: 05-27-2017 Episodic Neoplasms of unspecified nature or uncertain behavior (14 sources) Benign neoplasm of pancreas; Translations: [Neoplasm of unspecified behavior of digestive system] Onset: 10-14-2016 10-14-2016 Episodic Other connective tissue disease (2 sources) Pain in lower limb; Translations: [Leg Pain] Onset: 02-03-2023 Episodic Other connective tissue disease (2 sources) Pain in right lower leg; Translations: [Pain in right lower leg] Onset: 01-29-2023 Episodic Other connective tissue disease (2 sources) Other specified soft tissue disorders; Translations: [Other specified soft tissue disorders] Onset: 01-29-2023 Episodic Other non-traumatic joint disorders (6 sources) Pain in unspecified knee; Translations: [Pain in joint, lower leg] Onset: 04-17-2011 04-17-2011 Episodic Other non-traumatic joint disorders (6 sources) Hip pain; Translations: [Pain in unspecified hip] Onset: 04-17-2011 04-17-2011 Episodic Other screening for suspected conditions (not mental disorders or infectious disease) (9 sources) Liver function tests abnormal; Translations: [Other specified abnormal findings of blood chemistry] Onset: 12-11-2011 12-11-2011 Episodic Skin and subcutaneous tissue infections (8 sources) Cellulitis of right lower limb; Translations: [Cellulitis of right lower limb] Onset: 01-29-2023 01-29-2023 Episodic Urinary tract infections (8 sources) Recurrent urinary tract infection; Translations: [Urinary tract infection, site not specified] Onset: 12-31-2021 08-30-2022 Episodic Results Test Name Value Interpretation Reference Range Facil ity Vital Signs Date Time Vital Sign Value Performing Clinician Faci lity 11-09-2023 09:18-0500 Body mass index (BMI) [Ratio] 29.61 kg/m2 Maximojos Shenenthal SURFACE GRINDER - MARKETING SPECIALIST Work Phone: [employer] 11-09-2023 09:18-0500 Body temperature 97.39 [degF] Maximo Bridenthal SURFACE GRINDER - MARKETING SPECIALIST Work Phone: [employer] 11-09-2023 09:18-0500 Body weight 71.67 kg Maximo Bridenthal SURFACE GRINDER - MARKETING SPECIALIST Work Phone: [employer] 11-09-2023 09:18-0500 Diastolic blood pressure 64 mm[Hg] Maximo Acenthal SURFACE GRINDER - MARKETING SPECIALIST Work Phone: [employer] 11-09-2023 09:18-0500 Heart rate 96 /min Maximo Acenthal SURFACE GRINDER - MARKETING SPECIALIST Work Phone: [employer] 11-09-2023 09:18-0500 Respiratory rate 24 /min Maximo Acenthal SURFACE GRINDER - MARKETING SPECIALIST Work Phone: [employer] 11-09-2023 09:18-0500 SaO2% (BldA) [Mass fraction] 96 % Maximo Acenthal SURFACE GRINDER - MARKETING SPECIALIST Work Phone: [employer] 11-09-2023 09:18-0500 Systolic blood pressure 119 mm[Hg] Maximo Acenthal SURFACE GRINDER - MARKETING SPECIALIST Work Phone: [employer] 07-05-2023 10:48-0400 Diastolic blood pressure 72 mm[Hg] Angela Patel MD Work Phone: [employer] 07-05-2023 10:48-0400 Heart rate 60 /min Angela Patel MD Work Phone: [employer] 07-05-2023 10:48-0400 Systolic blood pressure 128 mm[Hg] Angela Patel MD Work Phone: [employer] 07-05-2023 10:11-0400 Body height 155.6 cm Angela Patel MD Work Phone: [employer] 07-05-2023 10:11-0400 Body mass index (BMI) [Ratio] 29.99 kg/m2 Angela Patel MD Work Phone: [employer] 07-05-2023 10:11-0400 Body weight 72.58 kg Angela Patel MD Work Phone: [employer] 07-05-2023 10:11-0400 SaO2% (BldA) [Mass fraction] 95 % Angela Patel MD Work Phone: [employer] 02-03-2023 14:07-0400 Body height 155.6 cm Angela Patel MD Work Phone: [employer] 02-03-2023 14:07-0400 Body mass index (BMI) [Ratio] 30.51 kg/m2 Angela Patel MD Work Phone: [employer] 02-03-2023 14:07-0400 Body weight 73.85 kg Angela Patel MD Work Phone: [employer] 02-03-2023 14:07-0400 Diastolic blood pressure 69 mm[Hg] Angela Patel MD Work Phone: [employer] 02-03-2023 14:07-0400 Heart rate 65 /min Angela Patel MD Work Phone: [employer] 02-03-2023 14:07-0400 Systolic blood pressure 167 mm[Hg] Angela Patel MD Work Phone: [facility] Encounters Encounter Date Encounter Type Care Provider Facility Start: 11-22-2023 End: 11-22-2023 ambulatory WENDY SEE Facility:[facility] Start: 11-09-2023 End: 11-09-2023 ambulatory MAXIMO RUANO [facility] Start: 11-09-2023 End: 11-09-2023 Office outpatient visit 15 minutes Maximo Ruano SURFACE GRINDER - MARKETING SPECIALIST Work Phone: [facility] Procedures Date Procedure Procedure Detail Performing Clinician Start: 09-13-2023 Clsr lacrimal punctu m plug each Wendy Rosa MD Work Phone: Start: 07-05-2023 Lipid 1996 panel - S trip or Plasma Angela Patel MD Work Phone: Start: 07-02-2023 Adult depression screening assessment Angela Patel MD Work Phone: Start: 02-03-2023 Follow-up visit Follow-up ANGELA PATEL Start: 07-01-2022 Lipid 1996 panel - S trip or Plasma Shyla Lucia RN Plan of Treatment Date Care Activity Detail Author Start: 07-05-2028 Lipid panel Lipid Panel [facility] Start: 07-01-2027 Lipid panel Lipid Panel [facility] Start: 05-24-2026 Diabetes Screening Diabetes Screenin g [facility] Start: 11-09-2024 COVID-19 Vaccine ( season) COVID-19 Vaccine ( season) [facility] Immunizations Immunization Date Immunization Notes Care Provider Fa cility 07-01-2022 Pneumococcal Conjuga te PCV20, Pf (Prevnar 20) Shyla Lucia RN [facility] 06-30-2021 pneumococcal polysaccharide vaccine, 23 valent Shyla Lucia RN [facility] 12-27-2020 Moderna SARS-CoV-2 Vaccination Shyla Lucia RN [facility] 09-10-2016 influenza, seasonal, injectable, preservative free Shyla Lucia RN [facility] 09-10-2016 influenza virus vacc ine, unspecified formulation Shyla Lucia RN [facility] 09-21-2013 influenza, seasonal, injectable, preservative free Shyla Lucia RN [facility] 08-25-2013 hepatitis B vaccine, adult dosage Amelia George [facility] 08-25-2013 hepatitis B vaccine, unspecified formulation Ameliazachary Andradeacre [facility] 04-15-2012 hepatitis B vaccine, adult dosage Amelia [facility] 12-23-2005 tetanus and diphther ia toxoids, adsorbed, preservative free, for adult use (2 Lf of tetanus toxoid and 2 Lf of diphtheria toxoid) Shyla Lucia RN [facility] Payers Date Payer Category Payer Medicare [id number] 2019 Unknown [id number] 2004 Medicare 2004 Medicare [id number] Social History Date Type Detail Facility Start: 12-18-2011 Tobacco smoking status NHIS Never sm oked tobacco [facility] Start: 12-18-2011 Tobacco use and exposure Smoke less tobacco non-user [facility] Start: 09-18-2021 End: 11-09-2023 Alcohol intake Current non-drinker of alcohol (finding) [facility] Start: 1940 Sex Assigned At Not on file C [facility] Start: 01-04-2023 History SDOH Financial 5 [facility] Start: 01-04-2023 History SDOH Food Worry 1 [facility] Start: 01-04-2023 History SDOH Transport Med 2 [facility] Start: 01-18-2023 End: 07-05-2023 Exposure to SARS-CoV-2 (event) Not sure [facility] Start: 01-04-2023 End: 07-02-2023 History of Social function [facility] Start: 01-04-2023 End: 07-02-2023 Alcohol Use Disorder Identification Test - Consumption [AUDIT-C] [facility] How often to you hav e a drink containing alcohol? Never [facility] How many standard dr inks containing alcohol do you have on a typical day? Patient does not drink [facility] (I/We) worried wheth er (my/our) food would run out before (I/we) got money to buy more. Never true [facility] [employer] In the past 12 month s, was there a time when you were not able to pay the mortgage or rent on time? No [facility] Clinical Notes 09-11-2022 to 11-22-2023 Assessment & Plan Note - Maxiom Ruano [facility] - 11/09/2023 10:53 AM ESTAssessment & Plan Note - Maximo Ruano, [facility] - 11/09/2023 10:53 AM ESTPatient Instructions Note Date & Type Note Facility 11-22-2023 Note HNO ID: [id number] Author: WENDY ROSA MD Service: ? Author Type: Physician Type: Progress Notes Filed: 11/22/2023 10:46 Note Text: ASSESSMENT/PLAN: 1. Dry eye syndrome of bilateral lacrimal glands - ICD9: 375.15, ICD10: H04.123 (primary diagnosis) Referred by Isidro Gibson She has significant fogging of the vision that gets worse during the day Her vision is at its best in AM or right after she rests Possibly improves with ATs She in on restasis BID and PFATs q2h RL punctum appears post cautery or possibly scarred RU punctum is patent, confirmed on irrigation Plug RUL helped with vision but she is having constant tearing Replace plug RUL with Tapered Shaft Flow Controller 0.7mm She was on FML, since stopped 2. Central retinal vein occlusion, left eye, stable - ICD9: 362.35, ICD10: H34.8122 LP vision 3. Primary open angle glaucoma of both eyes, unspecified glaucoma stage - ICD9: 365.11, 365.70, ICD10: H40.1130 On max drops, continue 6 mos Wendy Rosa MD I have confirmed and edited as necessary the relevant ophthalmic history, ROS, and the neuro exam findings as obtained by others. I have seen and examined Guanaok Puckett. I have discussed the case and the management of this patient's care with the Resident/Fellow, if applicable. I also have reviewed and agree with the assessment and plan as stated above and agree with all of its relevant components. Wendy Rosa MD [facility] 11-09-2023 Evaluation + Plan note Associated Problem(s): Viral URI with cough Consistent with likely viral upper respiratory infection. Mild. Lung sounds are clear, likely cough is secondary to sinus drainage. [facility] 11-09-2023 Evaluation + Plan note Associated Problem(s): Sinus congestion Nasal saline spray, ipratropium nasal spray as directed. [facility] 11-09-2023 Miscellaneous Notes Associated Problem(s): Viral URI with cough Consistent with likely viral upper respiratory infection. Mild. Lung sounds are clear, likely cough is secondary to sinus drainage. Associated Problem(s): Sinus congestion Nasal saline spray, ipratropium nasal spray as directed. Associated Problem(s): Pain and swelling of right lower leg Secondary from varicose veins, denies any increased pain than she usually has, no s/s of infection or DVT. Recommend compression stockings bilaterally during the day and off at night. documented in this encounter [facility] 11-09-2023 Evaluation + Plan note Associated Problem(s): Pain and swelling of right lower leg Secondary from varicose veins, denies any increased pain than she usually has, no s/s of infection or DVT. Recommend compression stockings bilaterally during the day and off at night. [facility] 11-09-2023 History of Present illness Narrative Patient was identified by name and Date of . Images from the original note were not included. 11/09/2023 Guanako Puckett (: 1940) is a 82 y.o. female , Established patient, here for evaluation of the following chief complaint(s): Cough and Leg Pain ASSESSMENT/PLAN: 1. Viral URI with cough Assessment & Plan: Consistent with likely viral upper respiratory infection. Mild. Lung sounds are clear, likely cough is secondary to sinus drainage. 2. Sinus congestion Assessment & Plan: Nasal saline spray, ipratropium nasal spray as directed. Orders: - benzonatate (Tessalon) 100 MG capsule; Take 1 capsule (100 mg) by mouth 3 times daily as needed for cough. Do not crush or chew., Starting Wed11/09/2023, Until Wed12/09/2023 at 2359, Normal - ipratropium (Atrovent) 0.06 % nasal spray; Administer 2 sprays into each nostril 3 times daily for 7 days., Starting Wed11/09/2023, Until Wed11/16/2023, Normal 3. Pain and swelling of right lower leg Assessment & Plan: Secondary from varicose veins, denies any increased pain than she usually has, no s/s of infection or DVT. Recommend compression stockings bilaterally during the day and off at night. Reviewed and provided written patient education/instructions regarding diagnosis and management. Reviewed symptom management with non-pharmacological interventions and appropriate use of otc medications for relief of symptoms. Follow up for worsening or no improvement in symptoms. Follow up if symptoms worsen or fail to improve. SUBJECTIVE/OBJECTIVE: HPI - Guanako Puckett (: 1940) is a 82 y.o. female , Established patient, here for the evaluation of the following chief complaint(s): Cough and Leg Pain Cough with lots of congestion x 1 week. Mild shortness of breath and chest discomfort with cough. Feels about the same as she did 2 days ago. No fever or chills. + sick contacts at home. Has not taken anything over the counter for it other than fisherman's friend cough drops. No fever. Slight body aches with it. Right lower leg pain- reports chronic aching in it. Wants it checked to make sure it is not cellulitis, denies any increase in baseline discomfort. Has venous insufficiency bilaterally and occasionally wears compression stockings, but not recently. Does say it helps when she has them on- but hard to get on. Prior to Admission medications Medication Sig Start Date End Date Taking? Authorizing Provider acetaminophen (Tylenol) 500 MG tablet Take 500 mg by mouth every 6 hours as needed. Yes Historical Provider, ascorbic acid (Vitamin C) 500 MG tablet Take 500 mg by mouth in the morning. Yes Historical Provider, atenolol (Tenormin) 100 MG tablet take 1 tablet by mouth once daily 10/15/23 Yes Maximo Ruano APRN - YVONNE brimonidine (AlphaGAN P) 0.2 % ophthalmic solution 12/31/22 Yes Historical Provider, CRANBERRY JUICE EXTRACT PO Take by mouth. Yes Historical Provider, cycloSPORINE (Restasis) 0.05 % ophthalmic emulsion Administer 1 drop into both eyes 2 times daily. 12/25/22 Yes Historical Provider, dorzolamide-timolol (Cosopt) 22.3-6.8 MG/ML ophthalmic solution Place 1 drop in both eyes twice daily 04/22/18 Yes Historical Provider, erythromycin (Romycin) 5 MG/GM ophthalmic ointment apply into both eyes nightly 01/12/23 Yes Historical Provider, Estrogens Conjugated (Premarin) vaginal cream DAILY 02/02/22 Yes Historical Provider, latanoprost (Xalatan) 0.005 % ophthalmic solution PLACE 1 DROP INTO EACH EYE ONCE DAILY 12/16/22 Yes Historical Provider, PROBIOTIC PRODUCT PO Take by mouth. Yes Historical Provider, rosuvastatin (Crestor) 5 MG tablet take 1 tablet by mouth nightly 06/29/23 Yes Angela Patel MD Sodium Fluoride 5000 PPM 1.1 % paste BRUSH ONCE A DAY IN THE EVENING 10/08/23 Yes Historical Provider, spironolactone (Aldactone) 50 MG tablet take 1 tablet by mouth once daily 10/18/23 Yes PATRICIA Zamora CNP traMADol (Ultram) 50 MG tablet Take 1 tablet (50 mg) by mouth every 8 hours as needed for severe pain (7-10). 09/21/23 Yes Angela Patel MD ursodiol (Actigall) 300 MG capsule 10/25/23 Yes Historical Provider, fluorometholone (FML) 0.1 % ophthalmic suspension Administer 1 drop into both eyes 2 times daily. 06/12/22 11/09/23 Historical Provider, Review of Systems Constitutional: Negative for activity change, appetite change, chills, fatigue and fever. HENT: Positive for congestion, postnasal drip and rhinorrhea. Negative for sinus pain. Respiratory: Positive for cough and shortness of breath (With coughing). Cardiovascular: Positive for chest pain (With coughing). Gastrointestinal: Positive for nausea. Negative for abdominal pain, constipation, diarrhea and vomiting. Genitourinary: Negative for difficulty urinating. Neurological: Negative for dizziness, light-headedness and headaches. Vitals: 11/09/23 0918 BP: 119/64 Pulse: 96 Resp: 24 Temp: 36.3 C (97.4 F) TempSrc: Infrared SpO2: 96% Weight: 158 lb (71.7 kg) Physical Exam Constitutional: General: She is not in acute distress. Appearance: Normal appearance. She is ill-appearing (Mild). HENT: Head: Normocephalic and atraumatic. Nose: Congestion and rhinorrhea present. Mouth/Throat: Mouth: Mucous membranes are moist. Pharynx: Oropharynx is clear. No oropharyngeal exudate or posterior oropharyngeal erythema. Comments: Postnasal drainage noted Eyes: Conjunctiva/sclera: Conjunctivae normal. Cardiovascular: Rate and Rhythm: Normal rate and regular rhythm. Pulses: Normal pulses. Heart sounds: Normal heart sounds. Pulmonary: Effort: Pulmonary effort is normal. Breath sounds: Normal breath sounds. Musculoskeletal: Right lower leg: Edema (Trace, noted venous varicosities, no erythema) present. Left lower leg: No edema. Skin: General: Skin is warm and dry. Neurological: Mental Status: She is alert and oriented to person, place, and time. Psychiatric: Mood and Affect: Mood normal. Behavior: Behavior normal. Thought Content: Thought content normal. An electronic signature was used to authenticate this note. Maximo Ruano APRN - Y[facility]ONNE 11/09/2023 10:54 AM documented in this encounter [facility] 10-25-2023 Note HNO ID: [id number] Author: Bonnie Gongora MD Service: ? Author Type: Physician Type: Progress Notes Filed: 10/25/2023 4:24 PM Note Text: Virtual visit with patient consent myChart/Zoom PBC re check. No fibrosis, normal liver tests (jun 2023) on UDCA 900 mg daily Exam: looks well neuro: no AMS Impression: PBC, early, with good control Rec: continue UDCA 900 mg per day; refill sent labs and visit with me 6 months Bonnie Gongora MD [facility] 10-25-2023 History of Present illness Narrative Virtual visit with patient consent myChart/Zoom PBC re check. No fibrosis, normal liver tests (jun 2023) on UDCA 900 mg daily Exam: looks well neuro: no AMS Impression: PBC, early, with good control Rec: continue UDCA 900 mg per day; refill sent labs and visit with me 6 months Bonnie Gongora MD documented in this encounter [facility] 10-18-2023 Telephone encounter Note Rx sent. Follow up as scheduled. [facility] 10-18-2023 Miscellaneous Notes Rx sent. Follow up as scheduled. Prescription Request: Last medication check: 02/03/23 Last physical exam: 07/05/23 Next scheduled appointment: 01/05/24 Last date of refill on this medication 05/17/23 documented in this encounter [facility] 10-18-2023 Telephone encounter Note Prescription Request: Last medication check: 02/03/23 Last physical exam: 07/05/23 Next scheduled appointment: 01/05/24 Last date of refill on this medication 05/17/23 [facility] 10-15-2023 Telephone encounter Note Reviewed chart. Refill appropriate. RX sent. [facility] 10-15-2023 Miscellaneous Notes Reviewed chart. Refill appropriate. RX sent. Prescription Request: Last medication check: 01/04/23 Last physical exam: 07/05/23 Next scheduled appointment: 01/05/24 Last date of refill on this medication 05/17/23 documented in this encounter [facility] 10-15-2023 Telephone encounter Note Prescription Request: Last medication check: 01/04/23 Last physical exam: 07/05/23 Next scheduled appointment: 01/05/24 Last date of refill on this medication 05/17/23 [facility] 09-13-2023 Note HNO ID: [id number] Author: Wendy Rosa MD Service: ? Author Type: Physician Type: Progress Notes Filed: 09/13/2023 2:25 PM Note Text: ASSESSMENT/PLAN: 1. Dry eye syndrome of bilateral lacrimal glands - ICD9: 375.15, ICD10: H04.123 (primary diagnosis) Referred by Isidro Gibson She has significant fogging of the vision that gets worse during the day Her vision is at its best in AM or right after she rests Possibly improves with ATs She in on restasis BID and PFATs q2h RL punctum appears post cautery or possibly scarred RU punctum is patent, confirmed on irrigation Discussed options Place plug 0.7mm RUL today Start warm compresses with heat mask She is on FML BID, which she reports having taken for 1 year since her surgery Consider stopping FML 2. Central retinal vein occlusion, left eye, stable - ICD9: 362.35, ICD10: H34.8122 LP vision 3. Primary open angle glaucoma of both eyes, unspecified glaucoma stage - ICD9: 365.11, 365.70, ICD10: H40.1130 On max drops, continue Wendy Rosa MD I have confirmed and edited as necessary the relevant ophthalmic history, ROS, and the neuro exam findings as obtained by others. I have seen and examined Guanako Puckett. I have discussed the case and the management of this patient's care with the Resident/Fellow, if applicable. I also have reviewed and agree with the assessment and plan as stated above and agree with all of its relevant components. Wendy Rosa MD [facility] 09-13-2023 Instructions Wendy Rosa MD - 09/13/2023 2:23 PM EDT Warm compresses with heat mask - start 2x per day for 5-10 minutes. This may be called a Madhav mask. Most local pharmacies stock them, or may stock other gel foam heat packs which you can use. You can also order them online. documented in this encounter [facility] 09-13-2023 History of Present illness Narrative ASSESSMENT/PLAN: 1. Dry eye syndrome of bilateral lacrimal glands - ICD9: 375.15, ICD10: H04.123 (primary diagnosis) Referred by Isidro Gibson She has significant fogging of the vision that gets worse during the day Her vision is at its best in AM or right after she rests Possibly improves with ATs She in on restasis BID and PFATs q2h RL punctum appears post cautery or possibly scarred RU punctum is patent, confirmed on irrigation Discussed options Place plug 0.7mm RUL today Start warm compresses with heat mask She is on FML BID, which she reports having taken for 1 year since her surgery Consider stopping FML 2. Central retinal vein occlusion, left eye, stable - ICD9: 362.35, ICD10: H34.8122 LP vision 3. Primary open angle glaucoma of both eyes, unspecified glaucoma stage - ICD9: 365.11, 365.70, ICD10: H40.1130 On max drops, continue Wendy Rosa MD I have confirmed and edited as necessary the relevant ophthalmic history, ROS, and the neuro exam findings as obtained by others. I have seen and examined Guanako Puckett. I have discussed the case and the management of this patient's care with the Resident/Fellow, if applicable. I also have reviewed and agree with the assessment and plan as stated above and agree with all of its relevant components. Wendy Rosa MD documented in this encounter [facility] 09-02-2023 Miscellaneous Notes Records have been sent to scanning for Epic entry. Patient is scheduled to be seen 09/13/[address] Rosa. documented in this encounter [facility] 07-05-2023 Evaluation + Plan note Associated Problem(s): Essential hypertension Blood pressure was initially elevated, recheck was normal, continue atenolol 100 mg daily [facility] 07-05-2023 Miscellaneous Notes Associated Problem(s): Essential hypertension Blood pressure was initially elevated, recheck was normal, continue atenolol 100 mg daily Associated Problem(s): Glaucoma Continue current eyedrops, follow-up with ophthalmology as scheduled. Associated Problem(s): Pure hypercholesterolemia Controlled, continue rosuvastatin 5 mg daily Associated Problem(s): Primary biliary cholangitis (HCC) Stable, continue Actigall 600 mg twice a day Associated Problem(s): Portal hypertension (CMS/HCC) (HCC) Stable on current medications atenolol, Actigall 300 mg 2 twice a day and spironolactone 50 mg daily documented in this encounter [facility] 07-05-2023 Evaluation + Plan note Associated Problem(s): Glaucoma Continue current eyedrops, follow-up with ophthalmology as scheduled. [facility] 07-05-2023 Evaluation + Plan note Associated Problem(s): Pure hypercholesterolemia Controlled, continue rosuvastatin 5 mg daily [facility] 07-05-2023 Evaluation + Plan note Associated Problem(s): Primary biliary cholangitis (HCC) Stable, continue Actigall 600 mg twice a day [facility] 07-05-2023 Evaluation + Plan note Associated Problem(s): Portal hypertension (CMS/HCC) (HCC) Stable on current medications atenolol, Actigall 300 mg 2 twice a day and spironolactone 50 mg daily [facility] 07-05-2023 History of Present illness Narrative Patient verified by last name and date of . Images from the original note were not included. [address] [id number] Visit type: Established Patient Reason for Visit: Medicare Annual Wellness Visit Subsequent, Health Maintenance (Hep A--declines, Shingles--declines, Tdap--will need at pharmacy, COVID 3-- has not had ), and Leg Pain (Right lower leg- had cellulitis before and it is sore now ) Assessment and Plan Problem List Items Addressed This Visit Circulatory Portal hypertension (CMS/HCC) (HCC) Stable on current medications atenolol, Actigall 300 mg 2 twice a day and spironolactone 50 mg daily Essential hypertension Blood pressure was initially elevated, recheck was normal, continue atenolol 100 mg daily Digestive Primary biliary cholangitis (HCC) Stable, continue Actigall 600 mg twice a day Other Pure hypercholesterolemia Controlled, continue rosuvastatin 5 mg daily Relevant Orders Lipid panel Glaucoma Continue current eyedrops, follow-up with ophthalmology as scheduled. Other Visit Diagnoses Medicare annual wellness visit, subsequent - Primary Screening for diabetes mellitus Relevant Orders Comprehensive metabolic panel Follow up in about 6 months (around 01/05/2024). Subjective HPI: Kristie comes in today for her annual Medicare well visit, her only complaint today is that she would like her leg looked at she says she had cellulitis and is still little sore but she does not feel like it is swollen and she cannot really see colors well with her eyes. She denies any other complaints at this time, see ROS. She does have multiple health issues but all seem to be stable at this time blood pressure is a little bit high so we will recheck that prior to discharge. Leg Pain Pertinent negatives include no numbness. I have reviewed and reconciled the medication list with the patient today. Current Outpatient Medications Medication Sig Dispense Refill acetaminophen (Tylenol) 500 MG tablet Take 500 mg by mouth every 6 hours as needed. ascorbic acid (Vitamin C) 500 MG tablet Take 500 mg by mouth in the morning. atenolol (Tenormin) 100 MG tablet Take 1 tablet (100 mg) by mouth daily. 90 tablet 1 brimonidine (AlphaGAN P) 0.2 % ophthalmic solution CRANBERRY JUICE EXTRACT PO Take by mouth. cycloSPORINE (Restasis) 0.05 % ophthalmic emulsion Administer 1 drop into both eyes 2 times daily. dorzolamide-timolol (Cosopt) 22.3-6.8 MG/ML ophthalmic solution Place 1 drop in both eyes twice daily erythromycin (Romycin) 5 MG/GM ophthalmic ointment apply into both eyes nightly Estrogens Conjugated (Premarin) vaginal cream DAILY fluorometholone (FML) 0.1 % ophthalmic suspension Administer 1 drop into both eyes 2 times daily. latanoprost (Xalatan) 0.005 % ophthalmic solution PLACE 1 DROP INTO EACH EYE ONCE DAILY PROBIOTIC PRODUCT PO Take by mouth. rosuvastatin (Crestor) 5 MG tablet take 1 tablet by mouth nightly 90 tablet 1 spironolactone (Aldactone) 50 MG tablet Take 1 tablet (50 mg) by mouth daily. 90 tablet 1 traMADol (Ultram) 50 MG tablet Take 50 mg by mouth every 8 hours as needed for severe pain (7-10). ursodiol (Actigall) 300 MG capsule Take 600 mg by mouth in the morning and 600 mg in the evening. No current facility-administered medications for this visit. There are no discontinued medications. List of current healthcare providers: Patient Care Team: Angela Patel MD as PCP - General The following health maintenance schedule was reviewed with the patient and provided in printed form in the after visit summary: Health Maintenance Topic Date Due Medicare Annual Wellness (AWV) Never done Influenza Vaccine (1) 07/16/2023 Hepatitis B Vaccines (3 of 3 - Risk 3-dose series) 01/04/2024 (Originally 10/20/2013) DTaP/Tdap/Td Vaccines (1 - Tdap) 07/02/2024 (Originally 12/24/2005) Hepatitis A Vaccines (1 of 2 - Risk 2-dose series) 07/02/2024 (Originally 1959) Zoster Vaccines (1 of 2) 07/02/2024 (Originally 1989) COVID-19 Vaccine (3 - Booster for Moderna series) 07/02/2024 (Originally 03/21/2021) Depression Screening 07/02/2024 Lipid Panel 07/01/2027 Pneumococcal Vaccine: 65+ Years Completed Bone Density Scan Completed HIB Vaccines Aged Out IPV Vaccines Aged Out Meningococcal Vaccine Aged Out Rotavirus Vaccines Aged Out HPV Vaccines Aged Out Orders Placed This Encounter Procedures Lipid panel Standing Status: Future Number of Occurrences: 1 Standing Expiration Date: 07/02/2024 Comprehensive metabolic panel Standing Status: Future Number of Occurrences: 1 Standing Expiration Date: 07/02/2024 Health Risk Assessment: General In general, how would you say your health is?: Good In the past 7 days, have you experienced any of the following: New or Increased Pain, New or Increased Fatigue, Loneliness, Social Isolation, Stress or Anger?: No Do you get the social and emotional suppport you need?: Yes Interventions: Health Habits / Nutrition On average, how many days per week do you engage in moderate to strenous exercise (like a brisk walk)?: 3 days On average, how man minutes do you engage in exercise at this level?: 30 min Have you lost any weight without trying in the past 3 months? : No Have you seen the dentist within the past year?: Yes Interventions: Hearing / Vision Do you or your family notice any trouble with your hearing that hasn't been managed with hearing aids?: No Do you have difficulty driving, watching TV, or doing any of your daily activities because of your eyesight?: (!) Yes Have you had an eye exam within the past year?: Yes No results found. Interventions: Safety Do you have a working smoke detector?: Yes Do you have any tripping hazards - loose or unsecured carpets or rugs?: No Do you have any tripping hazards - clutter in doorways, halls, or stairs?: No Do you have either shower bars, grab bars, non-slip mats or non-slip surfaces in your shower or bathtub? : Yes Do all your stairways have a railing or banister? : Yes Do you fasten your seatbelt when you are in a car?: Yes Interventions: ADL In the past 7 days, did you need help from others to perform any of the following everyday activities: Eating, dressing, grooming,bathing, toileting, or walking / balance? : No In the past 7 days, did you need help from others to take care of any of the following: laundry, housekeeping, banking / finances,shopping, telephone use, food preparation, transportation, or taking medications? : Yes Select all that apply: Transportation Interventions: Living Will Do you have a living will?: Yes Interventions: Cognitive: Cognitive Screening: Mini-Cog Clock Drawing Test (CDT): 2 Words Recalled: 3 Total Score: 5 Total Score Interpretation: Normal Mini-Cog Interventions: Fall Risk: Interventions: No falls Depression Screening: Over the past 2 weeks, how often have you been bothered by any of the following problems? Little interest or pleasure in doing things: Not at all Feeling down, depressed, or hopeless: Not at all Patient Health Questionnaire-2 Score: 0 Interventions: Tobacco Use: Social History Tobacco Use Smoking Status Never Smokeless Tobacco Never Interventions: Alcohol Use: Audit Alcohol Screening Q1: How often do you have a drink containing alcohol?: Never Q2: How many drinks containing alcohol do you have on a typical day when you are drinking?: Patient does not drink Q3: How often do you have six or more drinks on one occasion?: Never Audit-C Score: 0 Skip to questions 9-10?: 1 Q9: Have you or someone else been injured as a result of your drinking?: No Q10: Has a relative, friend, doctor, or another health professional expressed concern about your drinking or suggested you cut down?: No Audit Total Score: 0 Interventions: Drug Use: Drug Abuse Screening Test (DAST-10) Have you used drugs other than those required for medical reasons?: No Interventions: Review of Systems Constitutional: Negative for chills and fever. Respiratory: Negative for shortness of breath. Cardiovascular: Negative for chest pain and palpitations. Gastrointestinal: Negative for abdominal pain, blood in stool, constipation and diarrhea. Genitourinary: Negative for dyspareunia, dysuria, frequency, hematuria and urgency. Neurological: Negative for weakness and numbness. Psychiatric/Behavioral: Negative for dysphoric mood. The patient is not nervous/anxious. Immunization History Administered Date(s) Administered Hep B, adult 04/15/2012, 08/25/2013 Influenza, seasonal, injectable, preservative free 09/21/2013, 09/10/2016 Moderna SARS-CoV-2 Vaccination 12/27/2020, 01/24/2021 Pneumococcal Conjugate PCV20, Pf (Prevnar 20) 07/01/2022 Pneumococcal Polysaccharide PPSV23 06/30/2021 TD (adult), 2 Lf tetanus toxoid, preservative free, adsorbed 12/23/2005 Allergies Allergen Reactions Macrobid [Nitrofurantoin] Outpatient Medications Prior to Visit Medication Sig Dispense Refill acetaminophen (Tylenol) 500 MG tablet Take 500 mg by mouth every 6 hours as needed. ascorbic acid (Vitamin C) 500 MG tablet Take 500 mg by mouth in the morning. atenolol (Tenormin) 100 MG tablet Take 1 tablet (100 mg) by mouth daily. 90 tablet 1 brimonidine (AlphaGAN P) 0.2 % ophthalmic solution CRANBERRY JUICE EXTRACT PO Take by mouth. cycloSPORINE (Restasis) 0.05 % ophthalmic emulsion Administer 1 drop into both eyes 2 times daily. dorzolamide-timolol (Cosopt) 22.3-6.8 MG/ML ophthalmic solution Place 1 drop in both eyes twice daily erythromycin (Romycin) 5 MG/GM ophthalmic ointment apply into both eyes nightly Estrogens Conjugated (Premarin) vaginal cream DAILY fluorometholone (FML) 0.1 % ophthalmic suspension Administer 1 drop into both eyes 2 times daily. latanoprost (Xalatan) 0.005 % ophthalmic solution PLACE 1 DROP INTO EACH EYE ONCE DAILY PROBIOTIC PRODUCT PO Take by mouth. rosuvastatin (Crestor) 5 MG tablet take 1 tablet by mouth nightly 90 tablet 1 spironolactone (Aldactone) 50 MG tablet Take 1 tablet (50 mg) by mouth daily. 90 tablet 1 traMADol (Ultram) 50 MG tablet Take 50 mg by mouth every 8 hours as needed for severe pain (7-10). ursodiol (Actigall) 300 MG capsule Take 600 mg by mouth in the morning and 600 mg in the evening. No facility-administered medications prior to visit. Past Medical History: Diagnosis Date Glaucoma Liver disease cirrhosis Obesity Osteoarthritis Social History Socioeconomic History Marital status: Tobacco Use Smoking status: Never Smokeless tobacco: Never Substance and Sexual Activity Alcohol use: No Drug use: No Social Determinants of Health Financial Resource Strain: Low Risk (01/04/2023) Overall Financial Resource Strain (CARDIA) Difficulty of Paying Living Expenses: Not hard at all Food Insecurity: No Food Insecurity (01/04/2023) Hunger Vital Sign Worried About Running Out of Food in the Last Year: Never true Ran Out of Food in the Last Year: Never true Transportation Needs: No Transportation Needs (01/04/2023) PRAPARE - Transportation Lack of Transportation (Medical): No Lack of Transportation (Non-Medical): No Physical Activity: Insufficiently Active (07/02/2023) Exercise Vital Sign Days of Exercise per Week: 3 days Minutes of Exercise per Session: 30 min Housing Stability: Low Risk (07/02/2023) Housing Stability Vital Sign Unable to Pay for Housing in the Last Year: No Number of Places Lived in the Last Year: 1 Unstable Housing in the Last Year: No Past Surgical History: Procedure Laterality Date CARPAL TUNNEL RELEASE Right 2013 CATARACT EXTRACTION Left 10/2018 COLONOSCOPY 2017 KNEE ARTHROPLASTY Left 2007 TOTAL HIP ARTHROPLASTY Right 2016 TOTAL KNEE ARTHROPLASTY Right 11/2019 TOTAL VAGINAL HYSTERECTOMY 11/15/1989 UPPER GASTROINTESTINAL ENDOSCOPY 2012 Past Surgical History: Procedure Laterality Date CARPAL TUNNEL RELEASE Right 2013 CATARACT EXTRACTION Left 10/2018 COLONOSCOPY 2017 KNEE ARTHROPLASTY Left 2007 TOTAL HIP ARTHROPLASTY Right 2016 TOTAL KNEE ARTHROPLASTY Right 11/2019 TOTAL VAGINAL HYSTERECTOMY 11/15/1989 UPPER GASTROINTESTINAL ENDOSCOPY 2011 Family History Problem Relation Name Age of Onset Heart disease Father Arthritis Brother Cancer Maternal Grandfather Miscarriages / Stillbirths Mother Arthritis Sister High Blood Pressure Mother Hearing loss Mother Obesity Mother Colon cancer Mother Arthritis Father Heart disease Mother Vision loss Father Objective BP 128/72 Pulse 60 Ht 5' 1.25 (1.556 m) Wt 160 lb (72.6 kg) SpO2 95% BMI 29.99 kg/m Physical Exam Vitals and nursing note reviewed. Constitutional: General: She is not in acute distress. Appearance: Normal appearance. HENT: Head: Normocephalic. Right Ear: Tympanic membrane, ear canal and external ear normal. Left Ear: Tympanic membrane, ear canal and external ear normal. Mouth/Throat: Mouth: Mucous membranes are moist. Pharynx: Oropharynx is clear. Eyes: Extraocular Movements: Extraocular movements intact. Pupils: Pupils are equal, round, and reactive to light. Neck: Vascular: No carotid bruit. Cardiovascular: Rate and Rhythm: Normal rate and regular rhythm. Heart sounds: Normal heart sounds. No murmur heard. Pulmonary: Effort: Pulmonary effort is normal. Breath sounds: Normal breath sounds. Abdominal: General: Bowel sounds are normal. Palpations: Abdomen is soft. Musculoskeletal: General: Normal range of motion. Cervical back: Normal range of motion. Lymphadenopathy: Cervical: No cervical adenopathy. Skin: General: Skin is warm and dry. Neurological: General: No focal deficit present. Mental Status: She is alert and oriented to person, place, and time. Psychiatric: Mood and Affect: Mood normal. Data Reviewed Labs: Imaging/Testing: Angela Patel MD 07/05/2023 11:01 AM documented in this encounter [facility] 02-22-2023 Note Reviewed chart. Refi ll appropriate. Rx sent. Oarrs reviewed and consistent with treatment plan. [facility] 02-22-2023 Telephone encounter Note Reviewed chart. Refill appropriate. Rx sent. Oarrs reviewed and consistent with treatment plan. [facility] 02-22-2023 Miscellaneous Notes Reviewed chart. Refill appropriate. Rx sent. Oarrs reviewed and consistent with treatment plan. Pt is here now signing one at front desk person. Called pt, no answer and no vm. Needs to sign a CSA for this medication TRISHA. Refused rx Await obtaining CSMA CSA is , signed 12/31/21. Called pt to notify her to come in to sign a new one, she states she will have someone bring her. Medication name: traMADol (ULTRAM) 50 MG tablet Medication dosage: 50 mg (Miligrams Monthly quantity needed: 90 How many day supply requestin Medication route: oral (PO) Medication administration time(s): prn 8 hrs If taking medication PRN, reason for taking medication: N/A If this is a controlled substance do you receive this or any other controlled medication from any other doctor or facility: N/A Ordering provider: Dr. Patel Date of last office visit: 02/03/23 Date of next office visit: 07/05/23 Date of last refill: (see medication tab): 08/17/22 Updated/Validated preferred pharmacy: Yes Patient instructed to contact the pharmacy prior to picking up the medication: Yes documented in this encounter [facility] 02-22-2023 Telephone encounter Note Pt is here now signing one at front desk person. [facility] 02-22-2023 Telephone encounter Note Called pt, no answer and no vm. Needs to sign a CSA for this medication TRISHA. [facility] 02-22-2023 Telephone encounter Note Refused rx [facility] 02-15-2023 Telephone encounter Note Await obtaining CSMA [facility] 02-15-2023 Telephone encounter Note CSA is , signed 12/31/21. Called pt to notify her to come in to sign a new one, she states she will have someone bring her. [facility] 02-15-2023 Telephone encounter Note Medication name: traMADol (ULTRAM) 50 MG tablet Medication dosage: 50 mg (Miligrams Monthly quantity needed: 90 How many day supply requestin Medication route: oral (PO) Medication administration time(s): prn 8 hrs If taking medication PRN, reason for taking medication: N/A If this is a controlled substance do you receive this or any other controlled medication from any other doctor or facility: N/A Ordering provider: Dr. Patel Date of last office visit: 02/03/23 Date of next office visit: 07/05/23 Date of last refill: (see medication tab): 08/17/22 Updated/Validated preferred pharmacy: Yes Patient instructed to contact the pharmacy prior to picking up the medication: Yes [facility] 02-03-2023 Evaluation + Plan note Associated Problem(s): Cellulitis of right lower extremity Resolving, finish all antibiotics and call or return immediately if worsening symptoms. [facility] 02-03-2023 Miscellaneous Notes Associated Problem(s): Cellulitis of right lower extremity Resolving, finish all antibiotics and call or return immediately if worsening symptoms. documented in this encounter [facility] 02-03-2023 History of Present illness Narrative Patient verified by last name and date of . Patient wants a hand marker in the room during during the visit. no Fisher Seal na Granddaughter will be in room during visit Images from the original note were not included. 02/03/2023 Guanako Puckett (: 1940) is a 82 y.o. female , Established patient, here for evaluation of the following chief complaint(s): Leg Pain and Follow-up (Right lower leg) ASSESSMENT/PLAN: 1. Cellulitis of right lower extremity Assessment & Plan: Resolving, finish all antibiotics and call or return immediately if worsening symptoms. Follow up if symptoms worsen or fail to improve. SUBJECTIVE/OBJECTIVE: DREW Rubin comes in today for follow-up on her cellulitis of her right lower leg. She was seen about 6 days ago and was sent for Dopplers which were negative current antibiotics and since then the year the swelling and the pain have all decreased significantly and currently she is doing well. Review of Systems Musculoskeletal: Negative for arthralgias, gait problem and myalgias. Skin: Positive for color change. Neurological: Negative for weakness and numbness. Vitals: 02/03/23 1407 BP: (!) 167/69 Pulse: 65 Weight: 162 lb 12.8 oz (73.8 kg) Height: 5' 1.25 (1.556 m) Physical Exam Vitals and nursing note reviewed. Constitutional: Appearance: Normal appearance. Skin: Comments: Right lower leg with minimal erythema, nontender 1-2+ edema Neurological: Mental Status: She is alert. # An electronic signature was used to authenticate this note. Angela Patel MD 02/03/2023 3:22 PM documented in this encounter [facility] 01-29-2023 Telephone encounter Note Name of caller requesting page:Annie Phone Number of caller: [phone] Facility requesting page: [facility] Dept Reason for Page: Critical Venous Result for Patient's Right Leg Provider paged: [facility] Name of paged provider: Huyen FRAIRE Page Placed to #: Direct call to Provider Cell per directives on practice page. [phone] Time Page was sent or provider contacted: 12:55PM Page Content: Warm transferred Annie to Dr. Patel. [facility] 01-29-2023 Miscellaneous Notes Name of caller requesting page:Annie Phone Number of caller: [phone] Facility requesting page: [facility] Dept Reason for Page: Critical Venous Result for Patient's Right Leg Provider paged: [facility] Name of paged provider: Huyen FRAIRE Page Placed to #: Direct call to Provider Cell per directives on practice page. [phone] Time Page was sent or provider contacted: 12:55PM Page Content: Warm transferred Annie to Dr. Patel. documented in this encounter [facility] 01-28-2023 Telephone encounter Note Okay, thank you [facility] 01-28-2023 Miscellaneous Notes Okay, thank you S: Patient called the clinical access center with complaint of redness on right leg with mild pain. B:started a couple of days ago. A:pt said she always has some redness of her skin on her right leg. She has poor vision but thinks there may be a new area of redness about 2 inches but it is very hard for her to tell. She denies fever, rash, SOB, warmth of the site, red streaks. She said she had cellulitis 10 yrs ago and wants the area checked by her provider. R:appt Wednesday at [address] Patel. Pt has a negative Covid contact and symptom screen. Pt advised to bring photo ID, insurance card, medications with them to their visit if possible. Home care advise given to patient: Patient instructed to call back with worsening symptoms, concerns or questions. Reason for Disposition Patient wants to be seen Protocols used: Leg [id number] documented in this encounter [facility] 01-28-2023 Telephone encounter Note S: Patient called the clinical access center with complaint of redness on right leg with mild pain. B:started a couple of days ago. A:pt said she always has some redness of her skin on her right leg. She has poor vision but thinks there may be a new area of redness about 2 inches but it is very hard for her to tell. She denies fever, rash, SOB, warmth of the site, red streaks. She said she had cellulitis 10 yrs ago and wants the area checked by her provider. R:appt Wednesday at [address] Patel. Pt has a negative Covid contact and symptom screen. Pt advised to bring photo ID, insurance card, medications with them to their visit if possible. Home care advise given to patient: Patient instructed to call back with worsening symptoms, concerns or questions. 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 refill sugey 600 mg BID (but take only 900 mg per day, based on her new weight) 2. labs today and in 6 and 12 months 3. 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 labs in 6 NS 12 months 3. see me in 1 year or as needed 25 min more than 50% counseling Bonnie Gongora MD documented in this encounter [facility] 09-11-2022 Miscellaneous Notes Called Guanako Puckett to remind them of an appointment with Dr. Gongora on 09/14/2022. Left Message for patient. Sent [employer] message reminder documented in this encounter [facility] Diagnosis Cellulitis of right lower extremity- Primary [facility] Diagnosis Arthritis- Primary Unspecified arthropathy, site unspecified [facility]* Diagnosis Medicare annual wellness visit, subsequent- Primary Essential hypertension Unspecified essential hypertension Portal hypertension (CMS/HCC) (HCC) Portal hypertension Primary biliary cholangitis (HCC) Pure hypercholesterolemia Glaucoma of both eyes, unspecified glaucoma type Screening for diabetes mellitus [facility] Diagnosis Dry eye syndrome of bilateral lacrimal glands- Primary Tear film insufficiency, unspecified Central retinal vein occlusion, left eye, stable Primary open angle glaucoma of both eyes, unspecified glaucoma stage [facility] Diagnosis Primary biliary cholangitis (HCC)- Primary [facility] Diagnosis Viral URI with cough- Primary Sinus congestion Other diseases of nasal cavity and sinuses Pain and swelling of right lower leg [facility]* Attachments The following attachments cannot be sent through Care Everywhere. * Viral Upper Respiratory Infection Discharge Instructions, Adult (Polish) [facility] Family History No Family History Records FoundNo Family History Records FoundNo Family History Records FoundNo Family History Records Found Advance Directives No Advanced Directives Records FoundNo Advanced Directives Records FoundNo Advanced Directives Records FoundNo Advanced Directives Records Found Additional Source Comments INFORMATION SOURCE (unrecogn ized section and content) DATE CREATED AUTHOR AUTHOR'S ORGANIZ ATION 12/06/2019 [facility] ([place]) DATE CREATED AUTHOR AUTHOR'S ORGANIZ ATION 11/22/2023 [facility] DATE CREATED AUTHOR AUTHOR'S ORGANIZ ATION 11/27/2023 [facility] Source Comments (unrecognize d section and content) In the event this informatio n is protected by the Federal Confidentiality of Alcohol and Drug Abuse Patient Records regulations: The Federal rules restrict any use of the information to criminally investigate or prosecute any alcohol or drug abuse patient.[facility] the event this information is protected by the Federal Confidentiality of Alcohol and Drug Abuse Patient Records regulations: The Federal rules restrict any use of the information to criminally investigate or prosecute any alcohol or drug abuse patient.[facility] the event this information is protected by the Federal Confidentiality of Alcohol and Drug Abuse Patient Records regulations: The Federal rules restrict any use of the information to criminally investigate or prosecute any alcohol or drug abuse patient.[facility] the event this information is protected by the Federal Confidentiality of Alcohol and Drug Abuse Patient Records regulations: The Federal rules restrict any use of the information to criminally investigate or prosecute any alcohol or drug abuse patient.[facility] the event this information is protected by the Federal Confidentiality of Alcohol and Drug Abuse Patient Records regulations: The Federal rules restrict any use of the information to criminally investigate or prosecute any alcohol or drug abuse patient.[facility] the event this information is protected by the Federal Confidentiality of Alcohol and Drug Abuse Patient Records regulations: The Federal rules restrict any use of the information to criminally investigate or prosecute any alcohol or drug abuse patient.[facility] Reason for Visit (unrecogniz ed section and content) Reason Comments Liver Disease Reason Onset Date Comments Leg Pain 01/28/2023 Reason Onset Date Comments Other 01/29/2023 Page Out Reason Comments Leg Pain Follow-up Right lower leg Reason Onset Date Comments Med Refill 02/15/2023 Reason Comments Medicare Annual Wellness Visit Subsequen t Health Maintenance Hep A--declines, Deidra ngles--declines, Tdap--will need at pharmacy, COVID 3-- has not had Leg Pain Right lower leg- had cellulitis before and it is sore now Reason Comments Received Outside Medical Records Reason Comments Refill Request Reason Comments New Patient Ref by: Isidro haq MD for dry eye eval (severe) Dry Eye Syndrome Evaluation OD >> OS Blurred Vision OD Foggy and really b ad upon waking; pt states sometimes better at night ( no vision in my left ) Tearing Right Eye h/o POAG OU Reason Comments Med Refill Reason Comments Cough Leg Pain Care Teams (unrecognized sec tion and content) Welfare Administrator Relationship Specialty Start Date End Date Satya Lyles III PCP - General Family Medicine 03/19/11 Ezequiel Mark Referring Internal Medicine 12/15/11 Welfare Administrator Relationship Specialty Start Date End Date Angela Patel MD [address] [place] [address] [phone] PCP - General 04/15/19 Welfare Administrator Relationship Specialty Start Date End Date Angela Patel MD [address] [place] [address] [phone] PCP - General 04/15/19 Welfare Administrator Relationship Specialty Start Date End Date Angela Patel MD [address] [place] [address] [id number] PCP - General 04/15/19 Welfare Administrator Relationship Specialty Start Date End Date Angela Patel MD [address] [place] [address] [phone] PCP - General 04/15/19 Welfare Administrator Relationship Specialty Start Date End Date Angela Patel MD [address] [place], [place] [address], [place] [phone] PCP - General 04/15/19 Welfare Administrator Relationship Specialty Start Date End Date Satya Lyles III PCP - General Family Medicine 03/19/11 Ezequiel Mark MD Referring Internal Medicine 12/15/11 Welfare Administrator Relationship Specialty Start Date End Date Satya Lyles III PCP - General Family Medicine 03/19/11 Ezequiel Mark MD Referring Internal Medicine 12/15/11 Welfare Administrator Relationship Specialty Start Date End Date Satya Lyles III PCP - General Family Medicine 03/19/11 Ezequiel Mark MD Referring Internal Medicine 12/15/11 Welfare Administrator Relationship Specialty Start Date End Date Angela Patel MD [address] [place] [id number] PCP - General 04/15/19 Welfare Administrator Relationship Specialty Start Date End Date Satya Lyles III PCP - General Family Medicine 03/19/11 Ezequiel Mark MD Referring Internal Medicine 12/15/11 Welfare Administrator Relationship Specialty Start Date End Date Angela Patel MD [address] [place] [address] [phone] PCP - General 04/15/19 FOR RECORDS PERTAINING TO PATIENTS WHO ARE OR HAVE BEEN ENROLLED IN A CHEMICAL DEPENDENCY/SUBSTANCEABUSE PROGRAM, SOME INFORMATION MAY BE OMITTED. This clinical summary was aggregated from multiple sources. Caution should be exercised in using it in the provision of clinical care. This summary normalizes information from multiple sources, and as a consequence, information in this document may materially change the coding, format and clinical context of patient data. In addition, data may be omitted in some cases. CLINICAL DECISIONS SHOULD BE BASED ON THE PRIMARY CLINICAL RECORDS. [employer] [facility]. provides no warranty or guarantee of the accuracy or completeness of information in this document.
== END | disposition home or self-care (01) ==
PROVIDERS: PCP Family Medicine; Referring Provider Ophthalmology; Visit Provider Ophthalmology
DX: Z00.00 Encounter for general adult medical examination without abnormal findings (principal)
CPT/HCPCS: 36415

== ENCOUNTER → 2024-09-26 | Outpatient (CLI) | payer SELFPAY ==
[2024-09-26 15:03] LABS: SERUM TEARS COLLECTION SPECIMEN PROCESSED
== END | disposition home or self-care (01) ==
PROVIDERS: PCP Family Medicine; Referring Provider Ophthalmology; Visit Provider Ophthalmology
DX: H04.123 Dry eye syndrome of bilateral lacrimal glands (principal)

== ENCOUNTER → 2025-07-23 | Outpatient (CLI) | payer SELFPAY ==
[2025-07-23 13:17] LABS: SERUM TEARS COLLECTION SPECIMEN PROCESSED
== END | disposition home or self-care (01) ==
PROVIDERS: PCP Family Medicine; Referring Provider Ophthalmology; Visit Provider Ophthalmology
DX: H04.123 Dry eye syndrome of bilateral lacrimal glands (principal)

== ENCOUNTER → 2025-10-03 09:15 | Outpatient (REF) | payer MEDICARE, OTHER, SELFPAY ==
[2025-10-04 10:01] LABS: Color, Urine Yellow (Yellow); Glucose, Dipstick Normal (Normal); Ketone-Dipstick Negative (Negative); Leukocyte Esterase-Dipstick 500 /ul (Negative); Nitrite-Dipstick Positive (Negative); Occult Blood-Urine 50 /ul (Negative); Protein-Dipstick 30 mg/dl (Negative); Specific Gravity, Urine 1.010 (1.002-1.030); Urine Bilirubin Dipstick Negative (Negative)
== END ==
LOC: OLS.ACH2 09:15
PROVIDERS: PCP Family Medicine; Visit Provider Family Medicine
DX: Z87.440 Personal history of urinary (tract) infections (principal)
CPT/HCPCS: 81002; 87077; 87086; 87088; 87186